=== PATIENT | male | born 1940 | race Hispanic/Latino ===

== ENCOUNTER 2018-07-05 23:23 | Inpatient (IN) | payer MEDICARE ==
[2018-07-05 23:24] VITALS: BMI 30.8
[2018-07-06] MEDS ORDERED: Sodium Chloride 0.9% 1,000 ML IV ONE (00:29)
--- NOTE | 2018-07-06 00:29 | C.PDOC ---
History Of Present Illness Patient presents with blood tinged sputum over the last 2-3 days. No f/c/n/v. Tolerating po. Speaking in complete sentences. No trauma or prolonged sitting. Time Seen by Provider: 07/06/18 00:28 Chief Complaint (Nursing): Cough, Cold, Congestion History Per: Patient History/Exam Limitations: no limitations Onset/Duration Of Symptoms: Days Current Symptoms Are (Timing): Still Present Initiating Event: Upper Respiratory Illness Exacerbating Factor(s): Coughing Current Respiratory Medications: See Home Med List Severity: Moderate Pain Scale Rating Of: 4 Associated Symptoms: Bloody Cough (tinged) Reports Recently: Treated By A Physician Recent travel outside of the [place]: No Additional History Per: Family Past Medical History Reviewed: Historical Data, Nursing Documentation, Vital Signs Vital Signs: Last Vital Signs Temp 97.7 F 07/05/18 23:52 Pulse 42 L 07/05/18 23:52 Resp 16 07/05/18 23:52 BP 130/96 H 07/05/18 23:52 Pulse Ox 97 07/05/18 23:52 - Medical History PMH: HTN - [facility] Procedures VENOUS CATHETERIZATION NEC (11/21/13) Family History: States: No Known Family Hx - Social History Hx Tobacco Use: Yes Hx Alcohol Use: Yes (SOCIAL) Hx Substance Use: No - Immunization History Hx Tetanus Toxoid Vaccination: No Hx Influenza Vaccination: No Review Of Systems Constitutional: Negative for: Fever, Chills Cardiovascular: Negative for: Chest Pain Respiratory: Positive for: Cough, Shortness of Breath Gastrointestinal: Negative for: Nausea, Vomiting, Abdominal Pain Genitourinary: Negative for: Dysuria Musculoskeletal: Negative for: Back Pain Skin: Negative for: Rash Neurological: Negative for: Weakness Psych: Negative for: Anxiety Physical Exam - Physical Exam Appears: Non-toxic, No Acute Distress Skin: Warm, Dry Head: Normacephalic Eye(s): bilateral: Normal Inspection Oral Mucosa: Moist Neck: Supple Chest: Symmetrical Cardiovascular: Rhythm Regular Respiratory: No Rales, Rhonchi, Wheezing (few) Gastrointestinal/Abdominal: Soft, No Tenderness, No Distention Back: No CVA Tenderness Extremity: Normal ROM Extremity: Bilateral: Atraumatic, Normal Color And Temperature Pulses: Left Dorsalis Pedis: Normal, Right Dorsalis Pedis: Normal Neurological/Psych: Oriented x3, Normal Speech Gait: Steady ED Course And Treatment - Laboratory Results Result Diagrams: 07/06/18 01:04 07/06/18 01:04 ECG: Interpreted By Me, Viewed By Me O2 Sat by Pulse Oximetry: 97 Pulse Ox Interpretation: Normal - Radiology CXR: Interpreted by Me, Viewed By Me CXR Interpretation: Yes: Infiltrates (? rll ), Cardiomegaly. No: Fracture, Other Disposition Discussed With Dr.: Martin Frost Jr. Comment: accepted the pt on his service and took over the care at 5:05 AM Doctor Will See Patient In The: Hospital Counseled Patient/Family Regarding: Studies Performed, Diagnosis - Disposition Disposition: HOSPITALIZED Disposition Time: 00:28 Condition: GUARDED Forms: [employer] (Wallisian) - POA Present On Arrival: None - Clinical Impression Clinical Impression: Lung mass, Pulmonary emboli, Bronchitis Decision To Admit - Pt Status Changed To: Hospital Disposition Of: Inpatient - Admit Certification Admit to Inpatient:: After my assessment, the patient will require hospit alization for at least two midnights. This is because of the severity of symptoms shown, intensity of services needed, and/or the medical risk in this patient being treated as an outpatient. - InPatient: Physician Admission Certification: I certify that this patient requires 2 or more midnights of care for the following reason:: After my assessment, the stewart ent will require hospitalization for at least two midnights. This is because of the severity of symptoms shown, intensity of services needed, and/or the medical risk in this patient being treated as an outpatient. - . Bed Request Type: Telemetry Admitting Physician: Martin Frost Jr. Patient Diagnosis: Lung mass, Pulmonary emboli, Bronchitis
[2018-07-06] MEDS: Albuterol-Ipratrop 3 mg / 0.5 (3 ml) UD IH SCH (00:38)
[2018-07-06] MEDS ORDERED: Albuterol-Ipratrop 3 mg / 0.5 (3 ml) UD ONE (00:44)
[2018-07-06 01:17] LABS: VENOUS BLOOD GAS BASE EXCESS 3.4 mmol/L (0.0-2.0); VENOUS BLOOD GAS PCO2 55 mmHg (40-60); VENOUS BLOOD GAS PO2 28 mm/Hg (30-55); VENOUS BLOOD PH 7.35 (7.32-7.43)
[2018-07-06 01:18] LABS: BASO # 0.1 K/uL (0.0-0.2); BASO % 0.8 % (0.0-2.0); EOS # 0.3 K/uL (0.0-0.7); EOS % 3.5 % (0.0-4.0); HEMOGLOBIN 14.2 g/dL (12.0-18.0); LYMPH # 2.9 K/uL (1.0-4.3); LYMPH % 35.8 % (20.0-40.0); MEAN CELL VOLUME 69.7 fL (80.0-94.0); MEAN CORPUSCULAR HEMOGLOBIN 22.5 pg (27.0-31.0); MEAN CORPUSCULAR HGB CONC 32.3 g/dL (33.0-37.0); MEAN PLATELET VOLUME 9.2 fL (7.2-11.7); MONO # 0.8 K/uL (0.0-0.8); MONO % 10.3 % (0.0-10.0); NEUT % 49.6 % (50.0-75.0); RBC 6.32 Mil/uL (4.40-5.90); RED CELL DISTRIBUTION WIDTH 17.3 % (11.5-14.5)
[2018-07-06 01:19] LABS: ALB/GLOB RATIO 1.3 (1.0-2.1); ALBUMIN 3.9 g/dL (3.5-5.0); ALT/SGPT 10 U/L (21-72); AST/SGOT 19 U/L (17-59); BLOOD UREA NITROGEN 17 mg/dL (9-20); CALCIUM 9.1 mg/dl (8.6-10.4); GFR NON-AFRICAN AMERICAN > 60
[2018-07-06 01:22] LABS: INR 1.1
[2018-07-06 02:34] LABS: URINE BILIRUBIN NEGATIVE (NEGATIVE); URINE BLOOD NEGATIVE (NEGATIVE); URINE CLARITY Clear (Clear); URINE COLOR YELLOW (YELLOW); URINE GLUCOSE (UA) Normal (Normal); URINE PROTEIN NEGATIVE (NEGATIVE)
[2018-07-06 02:35] LABS: URINE BACTERIA RARE (<OCC); URINE LEUKOCYTE ESTERASE NEGATIVE Leu/uL (Negative); URINE UROBILINOGEN Normal mg/dL (0.2-1.0)
[2018-07-06] MEDS ORDERED: Iodixanol 320 MG/ML 100 ML BOTTLE IV ONE (02:38)
[2018-07-06] MEDS ORDERED: Piperacillin/Tazobact 3.375 gm 100 ML IVPB STA (05:08)
[2018-07-06] MEDS ORDERED: Piperacillin/Tazobact 3.375 gm 100 ML IVPB ONE (05:19)
--- NOTE | 2018-07-06 09:30 | CT ---
Date of service: 07/06/2018 PROCEDURE: CT Chest with contrast (Pulmonary Angiogram) HISTORY: hemoptysis COMPARISON: None available. TECHNIQUE: Axial computed tomography images were obtained of the chest in the pulmonary arterial phase of enhancement. Coronal and sagittal reformatted images were created and reviewed. Intravenous contrast dose: 100 mL Visipaque 320 escape Radiation dose: Total exam DLP = 619.04 mGy-cm. This CT exam was performed using one or more of the following dose reduction techniques: Automated exposure control, adjustment of the mA and/or kV according to patient size, and/or use of iterative reconstruction technique. FINDINGS: PULMONARY ARTERIES: Multiple left lower lobe segmental branch pulmonary emboli. An approximately 6 5.5 by 4.9 by 5 point 5 cm left infra hilar/left subcarinal/left hilar mass suspicious for malignancy encasing/infiltrating exerting mass effect on the left made similar left lower lobe bronchus with the encasement of the left main pulmonary artery and its immediate proximal branches is suggested.. Left lower lobe secondary volume loss and atelectasis inferred. AORTA: . No thoracic aortic aneurysm. There is presence of aortic atherosclerotic calcification and mural plaque on cross sectional studies. An aberrant right subclavian artery noted. Coronary artery calcifications noted LUNGS: Left central spiculated mass suspicious for malignancy as referenced above in the pulmonary consolidation. No no peripheral pulmonary suspect nodular metastases appreciated. PLEURAL SPACES: Unremarkable. No effusion or pneumothorax. HEART: Probable mild cardiomegaly left ventricular hypertrophy suspect. No significant pericardial effusion. LYMPH NODES: Mediastinal and blending left hilar gamal densities suspicious for metastatic lymphadenopathy. BONES, CHEST WALL: Unremarkable. No fracture or destructive lesion OTHER FINDINGS: Prominence of the thoracic and abdominal esophagus-a minimal hiatal hernia suspect. Concomitant esophageal neoplastic changes not excluded. The gastric antral duodenal junction appears less distended here mural thickening versus peristalsis is consideration. Its etiology is unclear. Distal to this in the 2nd duodenal segment there is a dilated duodenum with air-fluid level present. . Exophytic 4.5 x 3.2 cm right renal cyst. IMPRESSION: Left hilar/infrahilar/subcarinal "mass" suspicious for malignancy. Secondary compromise left lower lobe bronchus and left main pulmonary/proximal pulmonary artery branch encasement suspect. Subsegmental atelectasis left lower lobe medial aspect. Suspect regional central and left mediastinal/blending left hilar lymphadenopathy. Aberrant right subclavian artery developmental variant noted. Pulmonary emboli left lower lobe and subsegmental arterial branches.. Other findings as above. Concordant results (preliminary interpretation) provided by [facility].
--- NOTE | 2018-07-06 11:09 | CP.PCM.HP ---
History of Present Illness - History of Present Illness History of Present Illness: H&P note for Dr Frost CC: "I coughed up blood" HPI: Patient is a 77 y/o male with a PMhx of HTN and HLD presented to the ED with a 2 day history of cough and one episode of hemoptysis last night at 11 pm. Patient states that the cough was bright red blood colored and this is the first time he is having these symptoms. He also complains of pleuritic chest pain on the lateral lower left side of his chest that is exacerbated by coughing. Patient denies any fever, chills, palpitations, SOB, sore thorat, abdominal pain, nausea, vomiting, diarrhea, constipation, hematochezia, dysuria, hematuria, leg edema, numbness or tingling. He also denies any weight changes, recent travel, or any sick contact. Code status: full code, does not have living will/AD, proxy Ronak restrepo Pmhx: HTN, HLD PShx: denies. FamHx: Brother had CABG at age 50s after having an CA. Med: Aspirin 81 mg, Vit B, Vit D, Vit C complex Allergies: Novacaine (hypotension related palpitations) SocHx: Smoked 1ppd for about 60 years, quit 4 months ago, drinks alcohol socially on holidays, denies any drug use. Lives with his son and daughter in [place]. 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 PMD: Dr. Benito Germain MD. Present on Admission - Present on Admission Any Indicators Present on Admission: No Review of Systems - Review of Systems All systems: reviewed and no additional remarkable complaints except Review of Systems: as stated in HPI Past Patient History - Past Social History Smoking Status: Heavy Smoker > 10 Cigarettes Daily - CARDIAC Hx Hypertension: Yes - MUSCULOSKELETAL/RHEUMATOLOGICAL Hx Falls: No - PSYCHIATRIC Hx Substance Use: No - SURGICAL HISTORY Hx Cardiac Catheterization: Yes (2004) - ANESTHESIA Hx Anesthesia: Yes Hx Anesthesia Reactions: No Hx Malignant Hyperthermia: No Meds Allergies/Adverse Reactions: Allergies Allergy/AdvReac Type Severity Reaction Status Date / Time novocaine Allergy Uncoded 11/21/13 10:08 Physical Exam - Constitutional Appears: Non-toxic, No Acute Distress - Head Exam Head Exam: ATRAUMATIC, NORMAL INSPECTION, NORMOCEPHALIC - Eye Exam Eye Exam: EOMI, Normal appearance - ENT Exam ENT Exam: Mucous Membranes Moist, Normal Exam - Neck Exam Neck exam: Positive for: Normal Inspection - Respiratory Exam Respiratory Exam: Clear to Auscultation Bilateral, NORMAL BREATHING PATTERN. absent: Rales, Rhonchi, Wheezes - Cardiovascular Exam Cardiovascular Exam: REGULAR RHYTHM, +S1, +S2 - GI/Abdominal Exam GI & Abdominal Exam: Normal Bowel Sounds, Soft - Extremities Exam Extremities exam: Positive for: full ROM, normal inspection - Back Exam Back exam: NORMAL INSPECTION - Neurological Exam Neurological exam: Alert, CN II-XII Intact, Oriented x3 - Psychiatric Exam Psychiatric exam: Normal Affect, Normal Mood - Skin Skin Exam: Dry, Intact, Normal Color, Warm Results - Vital Signs Recent Vital Signs: Last Vital Signs Temp 97.5 F L 07/06/18 08:49 Pulse 67 07/06/18 08:54 Resp 20 07/06/18 08:49 BP 137/66 07/06/18 08:49 Pulse Ox 95 07/06/18 08:49 - Labs Result Diagrams: 07/06/18 01:04 07/06/18 01:04 Labs: Laboratory Results - last 24 hr 07/06/18 07/06/18 07/06/18 00:46 01:04 01:04 WBC 8.0 RBC 6.32 H Hgb 14.2 Hct 44.0 MCV 69.7 L MCH 22.5 L MCHC 32.3 L RDW 17.3 H Plt Count 226 MPV 9.2 Neut % (Auto) 49.6 L Lymph % (Auto) 35.8 [place] % (Auto) 10.3 H Eos % (Auto) 3.5 Baso % (Auto) 0.8 Neut # (Auto) 4.0 Lymph # (Auto) 2.9 [place] # (Auto) 0.8 Eos # (Auto) 0.3 Baso # (Auto) 0.1 PT 12.0 INR 1.1 APTT 33 pO2 28 L VBG pH 7.35 VBG pCO2 55 VBG HCO3 26.3 VBG Total CO2 32.1 H VBG O2 Sat (Calc) 55.8 VBG Base Excess 3.4 H VBG Potassium 4.2 Sodium 136.0 Chloride 100.0 Glucose 84 Lactate 1.9 Potassium Carbon Dioxide Anion Gap BUN Creatinine Est GFR ( Amer) Est GFR (Non-Af Amer) Random Glucose Calcium Total Bilirubin AST ALT Alkaline Phosphatase Total Protein Albumin Globulin Albumin/Globulin Ratio Venous Blood Potassium 4.2 Urine Color Urine Clarity Urine pH Ur Specific [place] Urine Protein Urine Glucose (UA) Urine Ketones Urine Blood Urine Nitrate Urine Bilirubin Urine Urobilinogen Ur Leukocyte Esterase Urine WBC (Auto) Urine RBC (Auto) Urine Bacteria 07/06/18 07/06/18 01:04 02:15 WBC RBC Hgb Hct MCV MCH MCHC RDW Plt Count MPV Neut % (Auto) Lymph % (Auto) [place] % (Auto) Eos % (Auto) Baso % (Auto) Neut # (Auto) Lymph # (Auto) [place] # (Auto) Eos # (Auto) Baso # (Auto) PT INR APTT pO2 VBG pH VBG pCO2 VBG HCO3 VBG Total CO2 VBG O2 Sat (Calc) VBG Base Excess VBG Potassium Sodium 132 Chloride 97 L Glucose Lactate Potassium 4.4 Carbon Dioxide 29 Anion Gap 10 BUN 17 Creatinine 0.9 Est GFR ( Amer) > 60 Est GFR (Non-Af Amer) > 60 Random Glucose 94 D Calcium 9.1 Total Bilirubin 0.5 AST 19 ALT 10 L D Alkaline Phosphatase 70 Total Protein 6.8 Albumin 3.9 Globulin 3.0 Albumin/Globulin Ratio 1.3 Venous Blood Potassium Urine Color Yellow Urine Clarity Clear Urine pH 5.0 Ur Specific [place] 1.010 Urine Protein Negative Urine Glucose (UA) Normal Urine Ketones Negative Urine Blood Negative Urine Nitrate Negative Urine Bilirubin Negative Urine Urobilinogen Normal Ur Leukocyte Esterase Negative Urine WBC (Auto) < 1 Urine RBC (Auto) 1 Urine Bacteria Rare Assessment & Plan - Assessment and Plan (Free Text) Assessment: 77 year old male presenting with hemoptysis, CTA PE protocol shows PE and lung mass suspicious for malignancy. Irregular heart beat on telemetry, patient transfer to ICU, pulm and cardio on board. Plan: Left Pulmonary Embolism Left pulm mass Chest Xray - cardiomegaly, possible infiltrate, pending official read CT angio PE protocol - Multiple left lower lobe segmental branch pulm emboli. approx 5.5 x 4.9x 5.5 cm left inra hilar/left subcarinal/left hilar mass suspicious for malignancy encasing/infiltrate exerting mass effect on left, with encasement of the left main pulm artery. sussegmental atelectasis left lower lobe medial aspect. suspect regonal central and left mediastinal/left hilar lymphadenopathy. Critical care consult - Transfer to ICU for further management of PE/hemptosys Pulm consult- Dr Lopez - possible bronch - will follow up recs New onset irregular heart rate Cardio consult - Dr Anne Hx of HTN normotensive continue monitor vitals Hx of HLD Patient not taking medication f/u lipid panel ppx DVT - meds c/i due to active bleed (hemoptysis), SCDs GI - not indicated HHD Plan discussed with Dr Santosh Kaminski, PGY-1 - Date & Time Date: 07/06/18 Time: 08:00
--- NOTE | 2018-07-06 12:18 | RAD ---
Date of service: 07/06/2018 PROCEDURE: CHEST RADIOGRAPH, 1 VIEW HISTORY: SOB COMPARISON: 11/03/2017 FINDINGS: LUNGS: Interval patchy opacity left lung base patchy atelectasis with or without infiltrate here suggested. PLEURA: No pneumothorax. Interval small left pleural effusion. CARDIOVASCULAR: There is presence of aortic atherosclerotic calcification on x-ray. Possible interval mild cardiomegaly versus projectional accentuation. Pulmonary vasculature top-normal. OSSEOUS STRUCTURES: Thoracic spondylosis. Right shoulder arthrosis. VISUALIZED UPPER ABDOMEN: Normal. OTHER FINDINGS: None. IMPRESSION: Interval basal atelectasis and or infiltrate. Interval small left pleural effusion.
[2018-07-06] MEDS ORDERED: Ipratropium 0.02% Inhal Soln (0.5 mg/2.5 ml) UD IH PRN (13:48)
[2018-07-06 14:42] LABS: ARTERIAL BLOOD GAS HCO3 26.7 mmol/L (21-28); ARTERIAL BLOOD GAS HEMOGLOBIN 13.2 g/dL (11.7-17.4); ARTERIAL BLOOD GAS PCO2 39 mm/Hg (35-45); ARTERIAL BLOOD GAS PH 7.44 (7.35-7.45); ARTERIAL BLOOD GAS PO2 71 mm/Hg (80-100); ARTERIAL BLOOD GAS TCO2 27.7 mmol/L (22-28)
--- NOTE | 2018-07-06 15:12 | CP.PCM.CON ---
History of Present Illness - History of Present Illness History of Present Illness: Pulmonary Consult Note for Dr. Lopez's service CC: blood with cough HPI: 77 yo male w/ PMH of HTN and HLD presented to the ED with a 2 day history of cough and one episode of hemoptysis last night at 11 pm. He states this is the first time that his has experienced this. Reports pain on left side that is worseneed by coughing. Does not report any sob, diaphoresis, fevers, or chills. Of note patient's also of lung cancer. Pmhx: HTN, HLD PShx: denies. FamHx: Brother had CABG at age 50s after having an HI. Med: Aspirin 81 mg, Vit B, Vit D, Vit C complex Allergies: Novacaine (hypotension related palpitations) SocHx: Smoked 1ppd for about 60 years, quit 4 months ago, drinks alcohol socially on holidays, denies any drug use. Lives with his son and daughter in [place]. 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 Review of Systems - Review of Systems All systems: reviewed and no additional remarkable complaints except Review of Systems: see HPI Past Patient History - Past Social History Smoking Status: Heavy Smoker > 10 Cigarettes Daily - CARDIAC Hx Hypertension: Yes - MUSCULOSKELETAL/RHEUMATOLOGICAL Hx Falls: No - PSYCHIATRIC Hx Substance Use: No - SURGICAL HISTORY Hx Cardiac Catheterization: Yes (2004) - ANESTHESIA Hx Anesthesia: Yes Hx Anesthesia Reactions: No Hx Malignant Hyperthermia: No Meds Allergies/Adverse Reactions: Allergies Allergy/AdvReac Type Severity Reaction Status Date / Time novocaine Allergy Uncoded 11/21/13 10:08 - Medications Medications: Current Medications Heparin Sodium (Porcine) (Heparin) 5,000 units SC Q12 HCRIS Ceftriaxone Sodium 1 gm/ (Sodium Chloride) 100 mls @ 100 mls/hr IVPB DAILY CHRIS; Protocol Ipratropium [place] (Atrovent) 0.5 mg IH RQ6 PRN PRN Reason: Shortness of Breath Pantoprazole Sodium (Protonix Inj) 40 mg IVP DAILY CHRIS Physical Exam - Constitutional Appears: Non-toxic, No Acute Distress - Head Exam Head Exam: NORMAL INSPECTION - Eye Exam Eye Exam: EOMI, Normal appearance - ENT Exam ENT Exam: Mucous Membranes Moist - Respiratory Exam Respiratory Exam: Clear to Auscultation Bilateral, NORMAL BREATHING PATTERN - Cardiovascular Exam Cardiovascular Exam: REGULAR RHYTHM, +S1, +S2 - GI/Abdominal Exam GI & Abdominal Exam: Normal Bowel Sounds, Soft. absent: Tenderness - Extremities Exam Extremities exam: Positive for: normal inspection. Negative for: calf tenderness, pedal edema - Neurological Exam Neurological exam: Alert, Oriented x3 - Psychiatric Exam Psychiatric exam: Normal Affect, Normal Mood - Skin Skin Exam: Dry, Intact, Normal Color Results - Vital Signs Recent Vital Signs: Last Vital Signs Temp 98.7 F 07/06/18 13:27 Pulse 60 07/06/18 13:20 Resp 16 07/06/18 13:20 BP 123/72 07/06/18 13:20 Pulse Ox 96 07/06/18 13:20 - Labs Result Diagrams: 07/06/18 01:04 07/06/18 01:04 Labs: Laboratory Results - last 24 hr 07/06/18 07/06/18 07/06/18 00:46 01:04 01:04 WBC 8.0 RBC 6.32 H Hgb 14.2 Hct 44.0 MCV 69.7 L MCH 22.5 L MCHC 32.3 L RDW 17.3 H Plt Count 226 MPV 9.2 Neut % (Auto) 49.6 L Lymph % (Auto) 35.8 [place] % (Auto) 10.3 H Eos % (Auto) 3.5 Baso % (Auto) 0.8 Neut # (Auto) 4.0 Lymph # (Auto) 2.9 [place] # (Auto) 0.8 Eos # (Auto) 0.3 Baso # (Auto) 0.1 PT 12.0 INR 1.1 APTT 33 Puncture Site pCO2 pO2 28 L HCO3 ABG pH ABG Total CO2 ABG O2 Saturation ABG Base Excess ABG Hemoglobin ABG Carboxyhemoglobin POC ABG HHb (Measured) ABG Methemoglobin Sean Test VBG pH 7.35 VBG pCO2 55 VBG HCO3 26.3 VBG Total CO2 32.1 H VBG O2 Sat (Calc) 55.8 VBG Base Excess 3.4 H VBG Potassium 4.2 Hgb O2 Saturation Sodium 136.0 Chloride 100.0 Glucose 84 Lactate 1.9 Liter Flow Potassium Carbon Dioxide Anion Gap BUN Creatinine Est GFR ( Amer) Est GFR (Non-Af Amer) Random Glucose Calcium Phosphorus Magnesium Total Bilirubin AST ALT Alkaline Phosphatase Total Protein Albumin Globulin Albumin/Globulin Ratio Venous Blood Potassium 4.2 Urine Color Urine Clarity Urine pH Ur Specific [place] Urine Protein Urine Glucose (UA) Urine Ketones Urine Blood Urine Nitrate Urine Bilirubin Urine Urobilinogen Ur Leukocyte Esterase Urine WBC (Auto) Urine RBC (Auto) Urine Bacteria 07/06/18 07/06/18 07/06/18 01:04 02:15 14:39 WBC RBC Hgb Hct MCV MCH MCHC RDW Plt Count MPV Neut % (Auto) Lymph % (Auto) [place] % (Auto) Eos % (Auto) Baso % (Auto) Neut # (Auto) Lymph # (Auto) [place] # (Auto) Eos # (Auto) Baso # (Auto) PT INR APTT Puncture Site Lb pCO2 39 pO2 71 L HCO3 26.7 ABG pH 7.44 ABG Total CO2 27.7 ABG O2 Saturation 98.0 ABG Base Excess 2.3 ABG Hemoglobin 13.2 ABG Carboxyhemoglobin 2.3 H POC ABG HHb (Measured) 1.9 ABG Methemoglobin 1.1 Sean Test Na VBG pH VBG pCO2 VBG HCO3 VBG Total CO2 VBG O2 Sat (Calc) VBG Base Excess VBG Potassium Hgb O2 Saturation 94.7 L Sodium 132 Chloride 97 L Glucose Lactate Liter Flow 21.0 Potassium 4.4 Carbon Dioxide 29 Anion Gap 10 BUN 17 Creatinine 0.9 Est GFR ( Amer) > 60 Est GFR (Non-Af Amer) > 60 Random Glucose 94 D Calcium 9.1 Phosphorus 3.8 Magnesium 1.9 Total Bilirubin 0.5 AST 19 ALT 10 L D Alkaline Phosphatase 70 Total Protein 6.8 Albumin 3.9 Globulin 3.0 Albumin/Globulin Ratio 1.3 Venous Blood Potassium Urine Color Yellow Urine Clarity Clear Urine pH 5.0 Ur Specific [place] 1.010 Urine Protein Negative Urine Glucose (UA) Normal Urine Ketones Negative Urine Blood Negative Urine Nitrate Negative Urine Bilirubin Negative Urine Urobilinogen Normal Ur Leukocyte Esterase Negative Urine WBC (Auto) < 1 Urine RBC (Auto) 1 Urine Bacteria Rare Assessment & Plan - Assessment and Plan (Free Text) Assessment: 77 yo male w/ PMH of HTN and HLD admitted for hemoptysis. Pulm consulted for hemoptysis. Plan: A: Hemoptysis Lung Mass Pulmonary embolism P: Chest CT findings concerning for hilar mass and pulmonary embolism Transferred to ICU for aggressive monitoring in the setting of hemoptysis and PE IV ceftriaxone Atrovent 0.5mg q6h for sob Hemodynamically stable Heparin q12 5000 units Bronchoscopy for tissue diagnosis Daily CBCs/CMP
--- NOTE | 2018-07-06 15:27 | CP.PCM.CON ---
<Deon Jama - Last Filed: 07/06/18 17:40> History of Present Illness - History of Present Illness History of Present Illness: PGY-1 Critical Care Progress Note for Dr. Lopez Patient seen and evaluated for ICU transfer for new-onset cough and hemoptysis. Patient states having cough beginning two days ago, and yesterday noticed small amount blood in the sputum. Does report weight loss, but due to recent diet changes cutting out sweets. Patient not c/o any fevers or chills, no history of TB or TB exposure. Patient reports 50+ pack year smoking history, but quick several years ago. Otherwise patient denies chest pain, pleuritic pain, shortness of breath, wheezing, dizziness. Pmhx: HTN, HLD PShx: Denies FamHx: Brother had CABG at age 50s following [place] Med: Aspirin 81 mg, Vit B, Vit D, Vit C complex Allergies: Novacaine SocHx: Smoked 1ppd for about 60 years, quit 4 months ago, drinks alcohol socially on holidays, denies any drug use. Lives with his son and daughter in [place]. 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 Code status: full code, does not have living will/AD, proxy Ronak restrepo Review of Systems - Constitutional Constitutional: absent: Chills, Fever - EENT Eyes: absent: Blurred Vision, Diplopia Nose/Mouth/Throat: absent: Nasal Congestion, Nasal Discharge - Cardiovascular Cardiovascular: absent: Chest Pain, Dyspnea - Respiratory Respiratory: Cough, Hemoptysis, Change in Mucous Color (specs blood noted in mucous). absent: Dyspnea, Wheezing - Gastrointestinal Gastrointestinal: absent: Abdominal Pain, Nausea, Vomiting - Genitourinary Genitourinary: absent: Dysuria, Flank Pain - Musculoskeletal Musculoskeletal: absent: Back Pain, Neck Pain - Neurological Neurological: absent: Dizziness, Numbness, Focal Weakness - Psychiatric Psychiatric: absent: Anxiety, Depression - Hematologic/Lymphatic Hematologic: absent: Easy Bleeding, Easy Bruising Past Patient History - Past Social History Smoking Status: Heavy Smoker > 10 Cigarettes Daily - CARDIAC Hx Hypertension: Yes - MUSCULOSKELETAL/RHEUMATOLOGICAL Hx Falls: No - PSYCHIATRIC Hx Substance Use: No - SURGICAL HISTORY Hx Cardiac Catheterization: Yes (2004) - ANESTHESIA Hx Anesthesia: Yes Hx Anesthesia Reactions: No Hx Malignant Hyperthermia: No Meds Allergies/Adverse Reactions: Allergies Allergy/AdvReac Type Severity Reaction Status Date / Time novocaine Allergy Uncoded 11/21/13 10:08 - Medications Medications: Current Medications Heparin Sodium (Porcine) (Heparin) 5,000 units SC Q12 [facility] Ceftriaxone Sodium 1 gm/ (Sodium Chloride) 100 mls @ 100 mls/hr IVPB DAILY [facility]; Protocol Ipratropium [place] (Atrovent) 0.5 mg IH RQ6 PRN PRN Reason: Shortness of Breath Pantoprazole Sodium (Protonix Inj) 40 mg IVP DAILY [facility] Physical Exam - Constitutional Appears: Non-toxic, No Acute Distress - Head Exam Head Exam: ATRAUMATIC, NORMOCEPHALIC - Eye Exam Eye Exam: EOMI - ENT Exam ENT Exam: Mucous Membranes Moist - Respiratory Exam Respiratory Exam: Decreased Breath Sounds. absent: Rales, Rhonchi - Cardiovascular Exam Cardiovascular Exam: REGULAR RHYTHM, +S1, +S2 - GI/Abdominal Exam GI & Abdominal Exam: Normal Bowel Sounds, Soft. absent: Tenderness - Extremities Exam Extremities exam: Negative for: pedal edema, tenderness - Neurological Exam Neurological exam: Alert, CN II-XII Intact, Oriented x3 - Psychiatric Exam Psychiatric exam: Normal Affect, Normal Mood - Skin Skin Exam: Dry, Intact Results - Vital Signs Recent Vital Signs: Last Vital Signs Temp 98.7 F 07/06/18 13:27 Pulse 60 07/06/18 13:20 Resp 16 07/06/18 13:20 BP 123/72 07/06/18 13:20 Pulse Ox 96 07/06/18 13:20 - Labs Result Diagrams: 07/06/18 01:04 07/06/18 01:04 Labs: Laboratory Results - last 24 hr 07/06/18 07/06/18 07/06/18 00:46 01:04 01:04 WBC 8.0 RBC 6.32 H Hgb 14.2 Hct 44.0 MCV 69.7 L MCH 22.5 L MCHC 32.3 L RDW 17.3 H Plt Count 226 MPV 9.2 Neut % (Auto) 49.6 L Lymph % (Auto) 35.8 [place] % (Auto) 10.3 H Eos % (Auto) 3.5 Baso % (Auto) 0.8 Neut # (Auto) 4.0 Lymph # (Auto) 2.9 [place] # (Auto) 0.8 Eos # (Auto) 0.3 Baso # (Auto) 0.1 PT 12.0 INR 1.1 APTT 33 Puncture Site pCO2 pO2 28 L HCO3 ABG pH ABG Total CO2 ABG O2 Saturation ABG Base Excess ABG Hemoglobin ABG Carboxyhemoglobin POC ABG HHb (Measured) ABG Methemoglobin Sean Test VBG pH 7.35 VBG pCO2 55 VBG HCO3 26.3 VBG Total CO2 32.1 H VBG O2 Sat (Calc) 55.8 VBG Base Excess 3.4 H VBG Potassium 4.2 Hgb O2 Saturation Sodium 136.0 Chloride 100.0 Glucose 84 Lactate 1.9 Liter Flow Potassium Carbon Dioxide Anion Gap BUN Creatinine Est GFR ( Amer) Est GFR (Non-Af Amer) Random Glucose Calcium Phosphorus Magnesium Total Bilirubin AST ALT Alkaline Phosphatase Total Protein Albumin Globulin Albumin/Globulin Ratio Venous Blood Potassium 4.2 Urine Color Urine Clarity Urine pH Ur Specific [place] Urine Protein Urine Glucose (UA) Urine Ketones Urine Blood Urine Nitrate Urine Bilirubin Urine Urobilinogen Ur Leukocyte Esterase Urine WBC (Auto) Urine RBC (Auto) Urine Bacteria 07/06/18 07/06/18 07/06/18 01:04 02:15 14:39 WBC RBC Hgb Hct MCV MCH MCHC RDW Plt Count MPV Neut % (Auto) Lymph % (Auto) [place] % (Auto) Eos % (Auto) Baso % (Auto) Neut # (Auto) Lymph # (Auto) [place] # (Auto) Eos # (Auto) Baso # (Auto) PT INR APTT Puncture Site Lb pCO2 39 pO2 71 L HCO3 26.7 ABG pH 7.44 ABG Total CO2 27.7 ABG O2 Saturation 98.0 ABG Base Excess 2.3 ABG Hemoglobin 13.2 ABG Carboxyhemoglobin 2.3 H POC ABG HHb (Measured) 1.9 ABG Methemoglobin 1.1 Sean Test Na VBG pH VBG pCO2 VBG HCO3 VBG Total CO2 VBG O2 Sat (Calc) VBG Base Excess VBG Potassium Hgb O2 Saturation 94.7 L Sodium 132 Chloride 97 L Glucose Lactate Liter Flow 21.0 Potassium 4.4 Carbon Dioxide 29 Anion Gap 10 BUN 17 Creatinine 0.9 Est GFR ( Amer) > 60 Est GFR (Non-Af Amer) > 60 Random Glucose 94 D Calcium 9.1 Phosphorus 3.8 Magnesium 1.9 Total Bilirubin 0.5 AST 19 ALT 10 L D Alkaline Phosphatase 70 Total Protein 6.8 Albumin 3.9 Globulin 3.0 Albumin/Globulin Ratio 1.3 Venous Blood Potassium Urine Color Yellow Urine Clarity Clear Urine pH 5.0 Ur Specific [place] 1.010 Urine Protein Negative Urine Glucose (UA) Normal Urine Ketones Negative Urine Blood Negative Urine Nitrate Negative Urine Bilirubin Negative Urine Urobilinogen Normal Ur Leukocyte Esterase Negative Urine WBC (Auto) < 1 Urine RBC (Auto) 1 Urine Bacteria Rare Assessment & Plan - Assessment and Plan (Free Text) Assessment: 77 year old male with CC hemoptysis, found to have lung mass on CT. Plan Pulm Left-sided pulmonary mass, left-sided pulmonary embolism Imaging -Chest Xray - cardiomegaly, possible infiltrate, pending official read -CT angio PE protocol - Multiple left lower lobe segmental branch pulm emboli. approx 5.5 x 4.9x 5.5 cm left inra hilar/left subcarinal/left hilar mass suspicious for malignancy encasing/infiltrate exerting mass effect on left, with encasement of the left main pulm artery. sussegmental atelectasis left lower lobe medial aspect. suspect regonal central and left mediastinal/left hilar lymphadenopathy. Critical care consult - Transfer to ICU for further management of PE/hemptosys Pulm consult- Dr Lopez - possible bronch - will follow up recs -ICU monitoring, patient breathing ORA in NAD -Hold on anticoagulation 2/2 hemoptysis -Plan for bronchoscopy with lung mass bx tomorrow 07/07 Cardio HTN -History HTN not currently on meds -Monitor BP Endo -f/u lipid panel PPx DVT - AC c/i 2/2 hemoptysis GI ppx not indiciated at this time Assessment and plan d/w Dr. John Jama, PGY-1 <Frandy Lopez - Last Filed: 07/06/18 17:59> Meds - Medications Medications: Current Medications Heparin Sodium (Porcine) (Heparin) 5,000 units SC Q12 [facility] Ceftriaxone Sodium 1 gm/ (Sodium Chloride) 100 mls @ 100 mls/hr IVPB DAILY [facility]; Protocol Ipratropium [place] (Atrovent) 0.5 mg IH RQ6 PRN PRN Reason: Shortness of Breath Pantoprazole Sodium (Protonix Inj) 40 mg IVP DAILY [facility] Results - Vital Signs Recent Vital Signs: Last Vital Signs Temp 98.7 F 07/06/18 13:27 Pulse 55 L 07/06/18 17:20 Resp 14 07/06/18 17:20 BP 121/73 07/06/18 17:20 Pulse Ox 96 07/06/18 17:20 - Labs Result Diagrams: 07/06/18 01:04 07/06/18 01:04 Labs: Laboratory Results - last 24 hr 07/06/18 07/06/18 07/06/18 00:46 01:04 01:04 WBC 8.0 RBC 6.32 H Hgb 14.2 Hct 44.0 MCV 69.7 L MCH 22.5 L MCHC 32.3 L RDW 17.3 H Plt Count 226 MPV 9.2 Neut % (Auto) 49.6 L Lymph % (Auto) 35.8 [place] % (Auto) 10.3 H Eos % (Auto) 3.5 Baso % (Auto) 0.8 Neut # (Auto) 4.0 Lymph # (Auto) 2.9 [place] # (Auto) 0.8 Eos # (Auto) 0.3 Baso # (Auto) 0.1 PT 12.0 INR 1.1 APTT 33 Puncture Site pCO2 pO2 28 L HCO3 ABG pH ABG Total CO2 ABG O2 Saturation ABG Base Excess ABG Hemoglobin ABG Carboxyhemoglobin POC ABG HHb (Measured) ABG Methemoglobin Sean Test VBG pH 7.35 VBG pCO2 55 VBG HCO3 26.3 VBG Total CO2 32.1 H VBG O2 Sat (Calc) 55.8 VBG Base Excess 3.4 H VBG Potassium 4.2 Hgb O2 Saturation Sodium 136.0 Chloride 100.0 Glucose 84 Lactate 1.9 Liter Flow Potassium Carbon Dioxide Anion Gap BUN Creatinine Est GFR ( Amer) Est GFR (Non-Af Amer) Random Glucose Calcium Phosphorus Magnesium Total Bilirubin AST ALT Alkaline Phosphatase Total Protein Albumin Globulin Albumin/Globulin Ratio Venous Blood Potassium 4.2 Urine Color Urine Clarity Urine pH Ur Specific [place] Urine Protein Urine Glucose (UA) Urine Ketones Urine Blood Urine Nitrate Urine Bilirubin Urine Urobilinogen Ur Leukocyte Esterase Urine WBC (Auto) Urine RBC (Auto) Urine Bacteria 07/06/18 07/06/18 07/06/18 01:04 02:15 14:39 WBC RBC Hgb Hct MCV MCH MCHC RDW Plt Count MPV Neut % (Auto) Lymph % (Auto) [place] % (Auto) Eos % (Auto) Baso % (Auto) Neut # (Auto) Lymph # (Auto) [place] # (Auto) Eos # (Auto) Baso # (Auto) PT INR APTT Puncture Site Lb pCO2 39 pO2 71 L HCO3 26.7 ABG pH 7.44 ABG Total CO2 27.7 ABG O2 Saturation 98.0 ABG Base Excess 2.3 ABG Hemoglobin 13.2 ABG Carboxyhemoglobin 2.3 H POC ABG HHb (Measured) 1.9 ABG Methemoglobin 1.1 Sean Test Na VBG pH VBG pCO2 VBG HCO3 VBG Total CO2 VBG O2 Sat (Calc) VBG Base Excess VBG Potassium Hgb O2 Saturation 94.7 L Sodium 132 Chloride 97 L Glucose Lactate Liter Flow 21.0 Potassium 4.4 Carbon Dioxide 29 Anion Gap 10 BUN 17 Creatinine 0.9 Est GFR ( Amer) > 60 Est GFR (Non-Af Amer) > 60 Random Glucose 94 D Calcium 9.1 Phosphorus 3.8 Magnesium 1.9 Total Bilirubin 0.5 AST 19 ALT 10 L D Alkaline Phosphatase 70 Total Protein 6.8 Albumin 3.9 Globulin 3.0 Albumin/Globulin Ratio 1.3 Venous Blood Potassium Urine Color Yellow Urine Clarity Clear Urine pH 5.0 Ur Specific [place] 1.010 Urine Protein Negative Urine Glucose (UA) Normal Urine Ketones Negative Urine Blood Negative Urine Nitrate Negative Urine Bilirubin Negative Urine Urobilinogen Normal Ur Leukocyte Esterase Negative Urine WBC (Auto) < 1 Urine RBC (Auto) 1 Urine Bacteria Rare Attending/Attestation - Attestation I have personally seen and examined this patient.: Yes I have fully participated in the care of the patient.: Yes I have reviewed all pertinent clinical information: Yes Notes (Text): 07/06/18 17:57 Patient seen and examined 77-year-old male transferred to intensive care unit for hemoptysis, lung mass, pulmonary embolism and tachycardia In the ICU patient found to be tachycardic Possible bronchoscopy/EBUS No full anticoagulation because of hemoptysis No DVT on venous Doppler of lower extremities Echocardiogram done with normal ejection fraction Quantitate hemoptysis Nebulizer treatment
--- NOTE | 2018-07-06 23:20 | CARD ---
APPROVED REPORT Date of service: 07/06/2018 EXAM: Two-dimensional and M-mode echocardiogram with Doppler and color Doppler. INDICATION Pulmonary Embolism IRREGULAR RHYTHM 2D DIMENSIONS IVSd1.0 (0.7-1.1cm)LVDd4.6 (3.9-5.9cm) PWd0.7 (0.7-1.1cm)LA Iozive08 (18-58mL) LVDs3.5 (2.5-4.0cm)FS (%) 24.5 % LVEF (%)51.0 (>50%)CO6.0 L/min LVEF (Carlos's)53 % M-Mode DIMENSIONS RVDd1.62 (2.1-3.2cm)Left Atrium (MM)3.60 (2.5-4.0cm) IVSd1.03 (0.7-1.1cm)Aortic Root3.42 (2.2-3.7cm) LVDd4.90 (4.0-5.6cm)Aortic Cusp Exc.2.09 (1.5-2.0cm) PWd1.03 (0.7-1.1cm)FS (%) 19 % LVDs3.97 (2.0-3.8cm)TAPSE15.93 cm LVEF (%)50 (>50%) Mitral Valve MV E Qjaedllq92.5cm/sMV A Vqbdkofr68.0cm/sE/A ratio1.3 TDI Lateral E' Peak V8.42cm/sMedial E' Peak V5.90cm/sE/Lateral E'7.2 E/Medial E'10.3 Tricuspid Valve TR Peak [id number]/sTR Peak [id number] LEFT VENTRICLE The left ventricle is normal size. There is normal left ventricular wall thickness. The left ventricular function is normal. The left ventricular ejection fraction is within the normal range. There is normal LV segmental wall motion. The left ventricular diastolic function is normal. RIGHT VENTRICLE The right ventricle is normal size. There is normal right ventricular wall thickness. ATRIA The left atrium size is normal. The right atrium size is normal. AORTIC VALVE The aortic valve is normal in structure. MITRAL VALVE Mitral regurgitation is trace. TRICUSPID VALVE There is mild tricuspid regurgitation. <Conclusion> Normal LV systolic function. Normal chamber size. Trace MR. Mild TR.
--- NOTE | 2018-07-07 05:41 | CP.PCM.CON ---
History of Present Illness - History of Present Illness History of Present Illness: 77 Male with Lung Mass consulted for Cardiac arrhythmias Denies chest pain and palpitations R/O ACS Check TSH Check ECHO Will follow Past Patient History - Past Social History Smoking Status: Heavy Smoker > 10 Cigarettes Daily - CARDIAC Hx Hypertension: Yes - MUSCULOSKELETAL/RHEUMATOLOGICAL Hx Falls: No - PSYCHIATRIC Hx Substance Use: No - SURGICAL HISTORY Hx Cardiac Catheterization: Yes (2004) - ANESTHESIA Hx Anesthesia: Yes Hx Anesthesia Reactions: No Hx Malignant Hyperthermia: No Meds Allergies/Adverse Reactions: Allergies Allergy/AdvReac Type Severity Reaction Status Date / Time novocaine Allergy Uncoded 11/21/13 10:08 - Medications Medications: Current Medications Heparin Sodium (Porcine) (Heparin) 5,000 units SC Q12 [facility] Last Admin: 07/06/18 22:00 Dose: Not Given Ceftriaxone Sodium 1 gm/ (Sodium Chloride) 100 mls @ 100 mls/hr IVPB DAILY [facility]; Protocol Ipratropium [place] (Atrovent) 0.5 mg IH RQ6 PRN PRN Reason: Shortness of Breath Pantoprazole Sodium (Protonix Inj) 40 mg IVP DAILY [facility] Last Admin: 07/06/18 18:49 Dose: 40 mg Results - Vital Signs Recent Vital Signs: Last Vital Signs Temp 98.4 F 07/06/18 20:00 Pulse 55 L 07/07/18 03:00 Resp 16 07/07/18 03:00 BP 108/50 L 07/07/18 02:21 Pulse Ox 95 07/07/18 03:00 - Labs Result Diagrams: 07/06/18 01:04 07/06/18 01:04 Labs: Laboratory Results - last 24 hr 07/06/18 07/06/18 01:04 14:39 Puncture Site Lb pCO2 39 pO2 71 L HCO3 26.7 ABG pH 7.44 ABG Total CO2 27.7 ABG O2 Saturation 98.0 ABG Base Excess 2.3 ABG Hemoglobin 13.2 ABG Carboxyhemoglobin 2.3 H POC ABG HHb (Measured) 1.9 ABG Methemoglobin 1.1 Sean Test Na Hgb O2 Saturation 94.7 L Liter Flow 21.0 Sodium 132 Potassium 4.4 Chloride 97 L Carbon Dioxide 29 Anion Gap 10 BUN 17 Creatinine 0.9 Est GFR ( Amer) > 60 Est GFR (Non-Af Amer) > 60 Random Glucose 94 D Calcium 9.1 Phosphorus 3.8 Magnesium 1.9 Total Bilirubin 0.5 AST 19 ALT 10 L D Alkaline Phosphatase 70 Total Protein 6.8 Albumin 3.9 Globulin 3.0 Albumin/Globulin Ratio 1.3
[2018-07-07 06:07] LABS: BASO # 0.1 K/uL (0.0-0.2); BASO % 0.7 % (0.0-2.0); EOS # 0.3 K/uL (0.0-0.7); EOS % 4.4 % (0.0-4.0); HEMOGLOBIN 14.5 g/dL (12.0-18.0); LYMPH # 2.7 K/uL (1.0-4.3); LYMPH % 33.5 % (20.0-40.0); MEAN CELL VOLUME 69.4 fL (80.0-94.0); MEAN CORPUSCULAR HEMOGLOBIN 22.5 pg (27.0-31.0); MEAN CORPUSCULAR HGB CONC 32.4 g/dL (33.0-37.0); MEAN PLATELET VOLUME 9.4 fL (7.2-11.7); MONO # 0.9 K/uL (0.0-0.8); MONO % 10.7 % (0.0-10.0); NEUT % 50.7 % (50.0-75.0); NRBC % 0.1 % (0.0-2.0); RBC 6.42 Mil/uL (4.40-5.90); RED CELL DISTRIBUTION WIDTH 17.4 % (11.5-14.5); WHITE BLOOD COUNT 7.9 K/uL (4.8-10.8)
[2018-07-07 06:14] LABS: ALB/GLOB RATIO 1.1 (1.0-2.1); ALBUMIN 3.6 g/dL (3.5-5.0); ALT/SGPT 16 U/L (21-72); AST/SGOT 21 U/L (17-59); BLOOD UREA NITROGEN 12 mg/dL (9-20); CALCIUM 9.4 mg/dl (8.6-10.4); GFR NON-AFRICAN AMERICAN > 60
[2018-07-07 06:24] LABS: HDL CHOLESTEROL 49 mg/dL (30-70)
[2018-07-07 06:34] LABS: LDL CHOLESTEROL 87 mg/dL (0-129)
--- NOTE | 2018-07-07 09:24 | CP.CCUPN ---
<Deon Jama - Last Filed: 07/07/18 14:35> CCU Subjective - Physician Review Subjective (Free Text): 07/07/18 09:27 Patient seen and examined at bedside. No acute events overnight. Patient denies any shortness of breath, no longer c/o any hemoptysis at this time. He is having new L sided back pain with coughing. Denies chest pain, n/v/d/c, abdominal pain, dizziness. CCU Objective - Vital Signs / Intake & Output Vital Signs (Last 4 hours): Vital Signs Pulse Resp BP Pulse Ox 07/07/18 09:00 58 L 11 L 95 07/07/18 08:00 58 L 18 94 L 07/07/18 07:00 73 16 99 07/07/18 06:21 55 L 17 173/73 H 98 07/07/18 06:00 55 L 18 Intake and Output (Last 8hrs): Intake & Output 07/06/18 07/07/18 07/07/18 22:59 06:59 14:59 Intake Total 765 425 Output Total 600 900 Balance 165 -900 425 Weight 190 lb 0.135 oz Intake: Oral 765 425 Output: Urine 600 900 Urine, Voided 600 900 Other: # Voids Urine, Voided 1 1 1 # Bowel Movements 0 0 0 - Physical Exam Head: Positive for: Atraumatic, Normocephalic Pupils: Positive for: PERRL Extroacular Muscles: Positive for: EOMI Mouth: Positive for: Moist Mucous Membranes Neck: Positive for: Normal Range of Motion Respiratory/Chest: Positive for: Decreased Breath Sounds (L side). Negative for: Accessory Muscle Use, Rales, Rhonchi Cardiovascular: Positive for: Regular Rate and Rhythm, Normal S1, S2. Negative for: Murmurs Abdomen: Negative for: Tenderness, Distention Neurological: Positive for: GCS=15, CN II-XII Intact Skin: Positive for: Warm, Dry, Normal Color Psychiatric: Positive for: Alert, Oriented x 3 - Medications Active Medications: Active Medications Generic Name Dose Route Start Last Admin Trade Name Freq PRN Reason Stop Dose Admin Heparin Sodium (Porcine) 5,000 units 07/06/18 18:00 07/06/18 22:00 Heparin SC Not Given Q12 [facility] Ceftriaxone Sodium 1 gm/ 100 mls @ 100 mls/hr 07/07/18 10:00 Sodium Chloride IVPB DAILY [facility] Protocol Ipratropium [place] 0.5 mg 07/06/18 13:48 Atrovent IH RQ6 PRN Shortness of Breath Pantoprazole Sodium 40 mg 07/06/18 10:00 07/06/18 18:49 Protonix Inj IVP 40 mg DAILY [facility] Administration - Patient Studies Lab Studies: Lab Studies 07/07/18 07/07/18 07/07/18 Range/Units 05:54 05:52 05:52 WBC 7.9 (4.8-10.8) K/uL RBC 6.42 H (4.40-5.90) Mil/uL Hgb 14.5 (12.0-18.0) g/dL Hct 44.6 (35.0-51.0) % MCV 69.4 L (80.0-94.0) fL MCH 22.5 L (27.0-31.0) pg MCHC 32.4 L (33.0-37.0) g/dL RDW 17.4 H (11.5-14.5) % Plt Count 228 (130-400) K/uL MPV 9.4 (7.2-11.7) fL Neut % (Auto) 50.7 (50.0-75.0) % Lymph % (Auto) 33.5 (20.0-40.0) % [place] % (Auto) 10.7 H (0.0-10.0) % Eos % (Auto) 4.4 H (0.0-4.0) % Baso % (Auto) 0.7 (0.0-2.0) % Neut # (Auto) 4.0 (1.8-7.0) K/uL Lymph # (Auto) 2.7 (1.0-4.3) K/uL [place] # (Auto) 0.9 H (0.0-0.8) K/uL Eos # (Auto) 0.3 (0.0-0.7) K/uL Baso # (Auto) 0.1 (0.0-0.2) K/uL Puncture Site pCO2 (35-45) mm/Hg pO2 (80-100) mm/Hg HCO3 (21-28) mmol/L ABG pH (7.35-7.45) ABG Total CO2 (22-28) mmol/L ABG O2 Saturation (95-98) % ABG Base Excess (-2.0-3.0) mmol/L ABG Hemoglobin (11.7-17.4) g/dL ABG Carboxyhemoglobin (0.5-1.5) % POC ABG HHb (Measured) (0.0-5.0) % ABG Methemoglobin (0.0-3.0) % Sean Test Hgb O2 Saturation (95.0-98.0) % Liter Flow Sodium 135 (132-148) mmol/L Potassium 4.1 (3.6-5.2) mmol/L Chloride 99 (98-107) mmol/L Carbon Dioxide 28 (22-30) mmol/L Anion Gap 12 (10-20) BUN 12 (9-20) mg/dL Creatinine 0.7 L (0.8-1.5) mg/dL Est GFR ( Amer) > 60 Est GFR (Non-Af Amer) > 60 Random Glucose 90 (75-110) mg/dL Calcium 9.4 (8.6-10.4) mg/dl Phosphorus (2.5-4.5) mg/dL Magnesium (1.6-2.3) mg/dL Total Bilirubin 1.1 (0.2-1.3) mg/dL AST 21 (17-59) U/L ALT 16 L D (21-72) U/L Alkaline Phosphatase 62 (38-126) U/L Total Protein 6.8 (6.3-8.3) g/dL Albumin 3.6 (3.5-5.0) g/dL Globulin 3.2 (2.2-3.9) gm/dL Albumin/Globulin Ratio 1.1 (1.0-2.1) Triglycerides 172 H D (0-149) mg/dL Cholesterol 160 (0-199) mg/dL LDL Cholesterol Direct 87 (0-129) mg/dL HDL Cholesterol 49 (30-70) mg/dL 07/06/18 07/06/18 Range/Units 14:39 01:04 WBC (4.8-10.8) K/uL RBC (4.40-5.90) Mil/uL Hgb (12.0-18.0) g/dL Hct (35.0-51.0) % MCV (80.0-94.0) fL MCH (27.0-31.0) pg MCHC (33.0-37.0) g/dL RDW (11.5-14.5) % Plt Count (130-400) K/uL MPV (7.2-11.7) fL Neut % (Auto) (50.0-75.0) % Lymph % (Auto) (20.0-40.0) % [place] % (Auto) (0.0-10.0) % Eos % (Auto) (0.0-4.0) % Baso % (Auto) (0.0-2.0) % Neut # (Auto) (1.8-7.0) K/uL Lymph # (Auto) (1.0-4.3) K/uL [place] # (Auto) (0.0-0.8) K/uL Eos # (Auto) (0.0-0.7) K/uL Baso # (Auto) (0.0-0.2) K/uL Puncture Site Lb pCO2 39 (35-45) mm/Hg pO2 71 L (80-100) mm/Hg HCO3 26.7 (21-28) mmol/L ABG pH 7.44 (7.35-7.45) ABG Total CO2 27.7 (22-28) mmol/L ABG O2 Saturation 98.0 (95-98) % ABG Base Excess 2.3 (-2.0-3.0) mmol/L ABG Hemoglobin 13.2 (11.7-17.4) g/dL ABG Carboxyhemoglobin 2.3 H (0.5-1.5) % POC ABG HHb (Measured) 1.9 (0.0-5.0) % ABG Methemoglobin 1.1 (0.0-3.0) % Sean Test Na Hgb O2 Saturation 94.7 L (95.0-98.0) % Liter Flow 21.0 Sodium 132 (132-148) mmol/L Potassium 4.4 (3.6-5.2) mmol/L Chloride 97 L (98-107) mmol/L Carbon Dioxide 29 (22-30) mmol/L Anion Gap 10 (10-20) BUN 17 (9-20) mg/dL Creatinine 0.9 (0.8-1.5) mg/dL Est GFR ( Amer) > 60 Est GFR (Non-Af Amer) > 60 Random Glucose 94 D (75-110) mg/dL Calcium 9.1 (8.6-10.4) mg/dl Phosphorus 3.8 (2.5-4.5) mg/dL Magnesium 1.9 (1.6-2.3) mg/dL Total Bilirubin 0.5 (0.2-1.3) mg/dL AST 19 (17-59) U/L ALT 10 L D (21-72) U/L Alkaline Phosphatase 70 (38-126) U/L Total Protein 6.8 (6.3-8.3) g/dL Albumin 3.9 (3.5-5.0) g/dL Globulin 3.0 (2.2-3.9) gm/dL Albumin/Globulin Ratio 1.3 (1.0-2.1) Triglycerides (0-149) mg/dL Cholesterol (0-199) mg/dL LDL Cholesterol Direct (0-129) mg/dL HDL Cholesterol (30-70) mg/dL Laboratory Results - last 24 hr 07/06/18 07/06/18 07/07/18 01:04 14:39 05:52 WBC RBC Hgb Hct MCV MCH MCHC RDW Plt Count MPV Neut % (Auto) Lymph % (Auto) [place] % (Auto) Eos % (Auto) Baso % (Auto) Neut # (Auto) Lymph # (Auto) [place] # (Auto) Eos # (Auto) Baso # (Auto) Puncture Site Lb pCO2 39 pO2 71 L HCO3 26.7 ABG pH 7.44 ABG Total CO2 27.7 ABG O2 Saturation 98.0 ABG Base Excess 2.3 ABG Hemoglobin 13.2 ABG Carboxyhemoglobin 2.3 H POC ABG HHb (Measured) 1.9 ABG Methemoglobin 1.1 Sean Test Na Hgb O2 Saturation 94.7 L Liter Flow 21.0 Sodium 132 135 Potassium 4.4 4.1 Chloride 97 L 99 Carbon Dioxide 29 28 Anion Gap 10 12 BUN 17 12 Creatinine 0.9 0.7 L Est GFR ( Amer) > 60 > 60 Est GFR (Non-Af Amer) > 60 > 60 Random Glucose 94 D 90 Calcium 9.1 9.4 Phosphorus 3.8 Magnesium 1.9 Total Bilirubin 0.5 1.1 AST 19 21 ALT 10 L D 16 L D Alkaline Phosphatase 70 62 Total Protein 6.8 6.8 Albumin 3.9 3.6 Globulin 3.0 3.2 Albumin/Globulin Ratio 1.3 1.1 Triglycerides Cholesterol LDL Cholesterol Direct HDL Cholesterol 07/07/18 07/07/18 05:52 05:54 WBC 7.9 RBC 6.42 H Hgb 14.5 Hct 44.6 MCV 69.4 L MCH 22.5 L MCHC 32.4 L RDW 17.4 H Plt Count 228 MPV 9.4 Neut % (Auto) 50.7 Lymph % (Auto) 33.5 [place] % (Auto) 10.7 H Eos % (Auto) 4.4 H Baso % (Auto) 0.7 Neut # (Auto) 4.0 Lymph # (Auto) 2.7 [place] # (Auto) 0.9 H Eos # (Auto) 0.3 Baso # (Auto) 0.1 Puncture Site pCO2 pO2 HCO3 ABG pH ABG Total CO2 ABG O2 Saturation ABG Base Excess ABG Hemoglobin ABG Carboxyhemoglobin POC ABG HHb (Measured) ABG Methemoglobin Sean Test Hgb O2 Saturation Liter Flow Sodium Potassium Chloride Carbon Dioxide Anion Gap BUN Creatinine Est GFR ( Amer) Est GFR (Non-Af Amer) Random Glucose Calcium Phosphorus Magnesium Total Bilirubin AST ALT Alkaline Phosphatase Total Protein Albumin Globulin Albumin/Globulin Ratio Triglycerides 172 H D Cholesterol 160 LDL Cholesterol Direct 87 HDL Cholesterol 49 Radiology Impressions: Radiology Impressions Chest X-Ray 07/06/18 00:29 IMPRESSION: Interval basal atelectasis and or infiltrate. Interval small left pleural effusion. Chest CT 07/06/18 02:02 IMPRESSION: Left hilar/infrahilar/subcarinal "mass" suspicious for malignancy. Secondary compromise left lower lobe bronchus and left main pulmonary/proximal pulmonary artery branch encasement suspect. Subsegmental atelectasis left lower lobe medial aspect. Suspect regional central and left mediastinal/blending left hilar lymphadenopathy. Aberrant right subclavian artery developmental variant noted. Pulmonary emboli left lower lobe and subsegmental arterial branches.. Other findings as above. Concordant results (preliminary interpretation) provided by [facility]. EKG/Cardiology Studies: Cardiology / EKG Studies 07/06/18 12:41 EKG [ELECTROCARDIOGRAM] Stat Comment: Mode Of Transportation: PORTABLE Reason For Exam: CHANGES IN TELEMETRY Review of Systems - Review of Systems All systems: reviewed and no additional remarkable complaints except Critical Care Progress Note - Nutrition Nutrition: Nutrition Category Date Time Status Heart Healthy Diet [DIET] Diets 07/06/18 Breakfast Active Assessment/Plan - Assessment and Plan (Free Text) Assessment: 77 year old male with CC hemoptysis, found to have lung mass on CT. Patient is acutely medically stable for transfer to telemetry. Plan Pulm Left-sided pulmonary mass, left-sided pulmonary embolism Imaging -Chest Xray - cardiomegaly, possible infiltrate, pending official read -CT angio PE protocol - Multiple left lower lobe segmental branch pulm emboli. approx 5.5 x 4.9x 5.5 cm left inra hilar/left subcarinal/left hilar mass suspicious for malignancy encasing/infiltrate exerting mass effect on left, with encasement of the left main pulm artery. sussegmental atelectasis left lower lobe medial aspect. suspect regonal central and left mediastinal/left hilar lymphadenopathy. Critical care consult - Transfer to ICU for further management of PE/hemptosys Pulm consult- Dr Lopez - pending bronch with pulmonary mass biopsy -Transfer to telemetry. Patient breathing ORA in NAD -Hold on anticoagulation 2/2 hemoptysis -Plan for bronchoscopy with lung mass bx with Dr. Lopez - f/u Cardio HTN -History HTN not currently on meds -Monitor BP Endo -Lipid panel - mildly elevated TGs, otherwise WNL PPx DVT - AC c/i 2/2 hemoptysis GI ppx not indiciated at this time Assessment and plan d/w Dr. Lety Jama, PGY-1 <Russell Davidson - Last Filed: 07/07/18 18:30> CCU Objective - Vital Signs / Intake & Output Intake and Output (Last 8hrs): Intake & Output 07/07/18 07/07/18 07/07/18 06:59 14:59 22:59 Intake Total 425 Output Total 900 Balance -900 425 Weight 190 lb 0.135 oz Intake: Oral 425 Output: Urine 900 Urine, Voided 900 Other: # Voids Urine, Voided 1 1 # Bowel Movements 0 0 - Medications Active Medications: Active Medications Generic Name Dose Route Start Last Admin Trade Name Freq PRN Reason Stop Dose Admin Heparin Sodium (Porcine) 5,000 units 07/06/18 18:00 07/07/18 10:45 Heparin SC 5,000 units Q12 [facility] Administration Ceftriaxone Sodium 1 gm/ 100 mls @ 100 mls/hr 07/07/18 10:00 07/07/18 10:45 Sodium Chloride IVPB 100 mls/hr DAILY [facility] Administration Protocol Ipratropium [place] 0.5 mg 07/06/18 13:48 Atrovent IH RQ6 PRN Shortness of Breath Pantoprazole Sodium 40 mg 07/06/18 10:00 07/07/18 10:45 Protonix Inj IVP 40 mg DAILY [facility] Administration - Patient Studies Lab Studies: Microbiology Studies 07/06/18 14:40 MRSA Culture (Admit) - Final Naris MRSA NOT DETECTED Lab Studies 07/07/18 07/07/18 07/07/18 Range/Units 05:54 05:52 05:52 WBC 7.9 (4.8-10.8) K/uL RBC 6.42 H (4.40-5.90) Mil/uL Hgb 14.5 (12.0-18.0) g/dL Hct 44.6 (35.0-51.0) % MCV 69.4 L (80.0-94.0) fL MCH 22.5 L (27.0-31.0) pg MCHC 32.4 L (33.0-37.0) g/dL RDW 17.4 H (11.5-14.5) % Plt Count 228 (130-400) K/uL MPV 9.4 (7.2-11.7) fL Neut % (Auto) 50.7 (50.0-75.0) % Lymph % (Auto) 33.5 (20.0-40.0) % [place] % (Auto) 10.7 H (0.0-10.0) % Eos % (Auto) 4.4 H (0.0-4.0) % Baso % (Auto) 0.7 (0.0-2.0) % Neut # (Auto) 4.0 (1.8-7.0) K/uL Lymph # (Auto) 2.7 (1.0-4.3) K/uL [place] # (Auto) 0.9 H (0.0-0.8) K/uL Eos # (Auto) 0.3 (0.0-0.7) K/uL Baso # (Auto) 0.1 (0.0-0.2) K/uL Sodium 135 (132-148) mmol/L Potassium 4.1 (3.6-5.2) mmol/L Chloride 99 (98-107) mmol/L Carbon Dioxide 28 (22-30) mmol/L Anion Gap 12 (10-20) BUN 12 (9-20) mg/dL Creatinine 0.7 L (0.8-1.5) mg/dL Est GFR ( Amer) > 60 Est GFR (Non-Af Amer) > 60 Random Glucose 90 (75-110) mg/dL Calcium 9.4 (8.6-10.4) mg/dl Total Bilirubin 1.1 (0.2-1.3) mg/dL AST 21 (17-59) U/L ALT 16 L D (21-72) U/L Alkaline Phosphatase 62 (38-126) U/L Total Protein 6.8 (6.3-8.3) g/dL Albumin 3.6 (3.5-5.0) g/dL Globulin 3.2 (2.2-3.9) gm/dL Albumin/Globulin Ratio 1.1 (1.0-2.1) Triglycerides 172 H D (0-149) mg/dL Cholesterol 160 (0-199) mg/dL LDL Cholesterol Direct 87 (0-129) mg/dL HDL Cholesterol 49 (30-70) mg/dL Laboratory Results - last 24 hr 07/07/18 07/07/18 07/07/18 05:52 05:52 05:54 WBC 7.9 RBC 6.42 H Hgb 14.5 Hct 44.6 MCV 69.4 L MCH 22.5 L MCHC 32.4 L RDW 17.4 H Plt Count 228 MPV 9.4 Neut % (Auto) 50.7 Lymph % (Auto) 33.5 [place] % (Auto) 10.7 H Eos % (Auto) 4.4 H Baso % (Auto) 0.7 Neut # (Auto) 4.0 Lymph # (Auto) 2.7 [place] # (Auto) 0.9 H Eos # (Auto) 0.3 Baso # (Auto) 0.1 Sodium 135 Potassium 4.1 Chloride 99 Carbon Dioxide 28 Anion Gap 12 BUN 12 Creatinine 0.7 L Est GFR ( Amer) > 60 Est GFR (Non-Af Amer) > 60 Random Glucose 90 Calcium 9.4 Total Bilirubin 1.1 AST 21 ALT 16 L D Alkaline Phosphatase 62 Total Protein 6.8 Albumin 3.6 Globulin 3.2 Albumin/Globulin Ratio 1.1 Triglycerides 172 H D Cholesterol 160 LDL Cholesterol Direct 87 HDL Cholesterol 49 Radiology Impressions: Radiology Impressions Duplex Scan Lower Extremity Artery 07/06/18 12:25 IMPRESSION: Right: No evidence of deep or superficial vein thrombosis of the right lower extremity. Normal valve function noted of the right side. Left: No evidence of deep or superficial vein thrombosis of the left lower extremity. Normal valve function noted of the left side. Critical Care Progress Note - Nutrition Nutrition: Nutrition Category Date Time Status Heart Healthy Diet [DIET] Diets 07/06/18 Breakfast Active Attending/Attestation - Attestation I have personally seen and examined this patient.: Yes I have fully participated in the care of the patient.: Yes I have reviewed all pertinent clinical information: Yes Notes (Text): 07/07/18 18:28 I have seen and examined the patient. Medical records, lab studies, and imaging were reviewed by me and a management plan was formulated on multidisciplinary rounds with resident Dr. Jama. I agree with their documented assessment and plan. no further episodes of hemoptysis. Patient clinically stable for downgrade to the floors. Critical Care Time 35 minutes. Multi-disciplinary rounds were performed with house staff, nursing, speech therapy, respiratory therapy, pharmacy and nutrition with integrated input from the primary team/attending and other consulting services. The documented time is cumulative and includes review of patient data/exams/labs/chart review and examination of the patient on rounds and throughout the day; time is exclusive of any procedures or teaching time.
--- NOTE | 2018-07-07 09:49 | CP.PCM.PN ---
Subjective - Date & Time of Evaluation Date of Evaluation: 07/07/18 Time of Evaluation: 09:48 - Subjective Subjective: Cardiology Consult Progress Note for Dr. Anne Objective - Vital Signs/Intake and Output Vital Signs (last 24 hours): Temp Pulse Resp BP Pulse Ox 98.4 F 58 L 11 L 173/73 H 95 07/06/18 20:00 07/07/18 09:00 07/07/18 09:00 07/07/18 06:21 07/07/18 09:00 Intake and Output: 07/07/18 07/07/18 06:59 18:59 Intake Total 240 425 Output Total 1150 Balance -910 425 - Medications Medications: Current Medications Heparin Sodium (Porcine) (Heparin) 5,000 units SC Q12 [facility] Last Admin: 07/06/18 22:00 Dose: Not Given Ceftriaxone Sodium 1 gm/ (Sodium Chloride) 100 mls @ 100 mls/hr IVPB DAILY [facility]; Protocol Ipratropium [place] (Atrovent) 0.5 mg IH RQ6 PRN PRN Reason: Shortness of Breath Pantoprazole Sodium (Protonix Inj) 40 mg IVP DAILY [facility] Last Admin: 07/06/18 18:49 Dose: 40 mg - Labs Labs: 07/07/18 05:54 07/07/18 05:52 PT 12.0 SECONDS (9.7-12.2) 07/06/18 01:04 INR 1.1 07/06/18 01:04 APTT 33 SECONDS (21-34) 07/06/18 01:04
--- NOTE | 2018-07-07 10:52 | VASCLAB ---
Date of service: 07/06/2018 PROCEDURE: Lower Extremity Venous Duplex Exam. HISTORY: +PE, r/o DVT PRIORS: None. TECHNIQUE: Bilateral common femoral, femoral, popliteal and posterior tibial, peroneal and great saphenous veins were evaluated. Flow was assessed with color Doppler, compressibility, assessment of phasic flow and augmentation response. Report prepared by Christoph Duron, BS, RVT FINDINGS: RIGHT: 1. Common Femoral Vein: 1.1. Compressibility - Fully compressible: Thrombus - None : Flow - Phasic: Augmentation -Normal: Reflux - None. 2. Femoral Vein: 2.1. Compressibility - Fully compressible: Thrombus - None : Flow - Phasic: Augmentation -Normal: Reflux - None. 3. Popliteal Vein: 3.1. Compressibility - Fully compressible: Thrombus - None : Flow - Phasic: Augmentation -Normal: Reflux - None. 4. Posterior Tibial Vein: 4.1. Compressibility - Fully compressible: Thrombus - None: Flow - Phasic: Augmentation -Normal: Reflux - None. 5. Peroneal Vein: 5.1. Compressibility - Fully compressible: Thrombus - None: Flow - Phasic: Augmentation -Normal: Reflux - None. 6. Great Saphenous Vein: 6.1. Compressibility - Fully compressible: Thrombus - None: Flow - Phasic: Augmentation - Normal: Reflux - None. LEFT: 1. Common Femoral Vein: 1.1. Compressibility - Fully compressible: Thrombus - None: Flow - Phasic: Augmentation -Normal: Reflux - None. 2. Femoral Vein: 2.1. Compressibility - Fully compressible: Thrombus - None: Flow - Phasic: Augmentation -Normal: Reflux - None. 3. Popliteal Vein: 3.1. Compressibility - Fully compressible: Thrombus - None : Flow - Phasic: Augmentation -Normal: Reflux - None. 4. Posterior Tibial Vein: 4.1. Compressibility - Fully compressible: Thrombus - None: Flow - Phasic: Augmentation -Normal: Reflux - None. 5. Peroneal Vein: 5.1. Compressibility - Fully compressible: Thrombus - None: Flow - Phasic: Augmentation -Normal: Reflux - None. 6. Great Saphenous Vein: 6.1. Compressibility - Fully compressible: Thrombus - None: Flow - Phasic: Augmentation - Normal: Reflux - None. OTHER FINDINGS: Right: None significant. Left: None significant. IMPRESSION: Right: No evidence of deep or superficial vein thrombosis of the right lower extremity. Normal valve function noted of the right side. Left: No evidence of deep or superficial vein thrombosis of the left lower extremity. Normal valve function noted of the left side.
--- NOTE | 2018-07-07 12:09 | CP.PCM.PN ---
Subjective - Date & Time of Evaluation Date of Evaluation: 07/07/18 Time of Evaluation: 12:07 - Subjective Subjective: Pulmonary Progress Note for Dr. Lopez's service S/E at bedside Denies sob or hemoptysis Pending bronchoscopy for staging Objective - Vital Signs/Intake and Output Vital Signs (last 24 hours): Temp Pulse Resp BP Pulse Ox 98.4 F 58 L 11 L 173/73 H 95 07/06/18 20:00 07/07/18 09:00 07/07/18 09:00 07/07/18 06:21 07/07/18 09:00 Intake and Output: 07/07/18 07/07/18 06:59 18:59 Intake Total 240 425 Output Total 1150 Balance -910 425 - Medications Medications: Current Medications Heparin Sodium (Porcine) (Heparin) 5,000 units SC Q12 [facility] Last Admin: 07/07/18 10:45 Dose: 5,000 units Ceftriaxone Sodium 1 gm/ (Sodium Chloride) 100 mls @ 100 mls/hr IVPB DAILY [facility]; Protocol Last Admin: 07/07/18 10:45 Dose: 100 mls/hr Ipratropium [place] (Atrovent) 0.5 mg IH RQ6 PRN PRN Reason: Shortness of Breath Pantoprazole Sodium (Protonix Inj) 40 mg IVP DAILY [facility] Last Admin: 07/07/18 10:45 Dose: 40 mg - Labs Labs: 07/07/18 05:54 07/07/18 05:52 PT 12.0 SECONDS (9.7-12.2) 07/06/18 01:04 INR 1.1 07/06/18 01:04 APTT 33 SECONDS (21-34) 07/06/18 01:04 - Constitutional Appears: Non-toxic, No Acute Distress - Head Exam Head Exam: NORMAL INSPECTION - Eye Exam Eye Exam: EOMI, Normal appearance - Respiratory Exam Respiratory Exam: NORMAL BREATHING PATTERN. absent: Decreased Breath Sounds, Respiratory Distress - Cardiovascular Exam Cardiovascular Exam: REGULAR RHYTHM, +S1, +S2 - GI/Abdominal Exam GI & Abdominal Exam: Soft, Normal Bowel Sounds - Neurological Exam Neurological Exam: Alert, Awake - Skin Skin Exam: Dry, Intact Assessment and Plan - Assessment and Plan (Free Text) Assessment: 77 yo male w/ PMH of HTN and HLD admitted for hemoptysis. Pulm consulted for hemoptysis. Plan: A: Hemoptysis Lung Mass Pulmonary embolism P: Chest CT findings concerning for hilar mass and pulmonary embolism Transferred to ICU for aggressive monitoring in the setting of hemoptysis and PE IV ceftriaxone Atrovent 0.5mg q6h for sob Hemodynamically stable Heparin q12 5000 units Bronchoscopy for tissue diagnosis Daily CBCs/CMP Case d/w DR. Lopez PGY-1 Karina Duggan
--- NOTE | 2018-07-07 13:17 | CP.PCM.PN ---
<Chelly Taylor - Last Filed: 07/07/18 16:48> Subjective - Date & Time of Evaluation Date of Evaluation: 07/07/18 Time of Evaluation: 13:14 - Subjective Subjective: Patient seen and examined at bedside. No overnight events reported. Patient denies any chest pain, palpitations, or SOB. Vitals are stable. Objective - Vital Signs/Intake and Output Vital Signs (last 24 hours): Temp Pulse Resp BP Pulse Ox 98.4 F 58 L 11 L 173/73 H 95 07/06/18 20:00 07/07/18 09:00 07/07/18 09:00 07/07/18 06:21 07/07/18 09:00 Intake and Output: 07/07/18 07/07/18 06:59 18:59 Intake Total 240 425 Output Total 1150 Balance -910 425 - Medications Medications: Current Medications Heparin Sodium (Porcine) (Heparin) 5,000 units SC Q12 [facility] Last Admin: 07/07/18 10:45 Dose: 5,000 units Ceftriaxone Sodium 1 gm/ (Sodium Chloride) 100 mls @ 100 mls/hr IVPB DAILY [facility]; Protocol Last Admin: 07/07/18 10:45 Dose: 100 mls/hr Ipratropium [place] (Atrovent) 0.5 mg IH RQ6 PRN PRN Reason: Shortness of Breath Pantoprazole Sodium (Protonix Inj) 40 mg IVP DAILY [facility] Last Admin: 07/07/18 10:45 Dose: 40 mg - Labs Labs: 07/07/18 05:54 07/07/18 05:52 PT 12.0 SECONDS (9.7-12.2) 07/06/18 01:04 INR 1.1 07/06/18 01:04 APTT 33 SECONDS (21-34) 07/06/18 01:04 - Constitutional Appears: Well, Non-toxic - Head Exam Head Exam: ATRAUMATIC, NORMAL INSPECTION, NORMOCEPHALIC - Eye Exam Eye Exam: Normal appearance - ENT Exam ENT Exam: Mucous Membranes Moist - Respiratory Exam Respiratory Exam: Clear to Ausculation Bilateral, NORMAL BREATHING PATTERN. absent: Accessory Muscle Use - Cardiovascular Exam Cardiovascular Exam: RRR, +S1, +S2 - GI/Abdominal Exam GI & Abdominal Exam: Soft. absent: Tenderness - Extremities Exam Extremities Exam: Normal Inspection - Psychiatric Exam Psychiatric exam: Normal Affect, Normal Mood Assessment and Plan - Assessment and Plan (Free Text) Assessment: 77 Male with Lung Mass consulted for Cardiac arrhythmias Plan: R/O ACS Will Review ECHO F/U TSH/Free T4 Patient discussed with Dr. Omid Taylor, PGY-2 <Vineet Anne - Last Filed: 07/08/18 05:54> Objective - Vital Signs/Intake and Output Vital Signs (last 24 hours): Temp Pulse Resp BP Pulse Ox 97.9 F 53 L 19 128/101 H 96 07/07/18 20:00 07/08/18 05:00 07/08/18 05:00 07/08/18 00:20 07/07/18 18:23 Intake and Output: 07/07/18 07/08/18 18:59 06:59 Intake Total 425 Balance 425 - Medications Medications: Current Medications Heparin Sodium (Porcine) (Heparin) 5,000 units SC Q12 CHRIS Last Admin: 07/07/18 22:00 Dose: 5,000 units Ceftriaxone Sodium 1 gm/ (Sodium Chloride) 100 mls @ 100 mls/hr IVPB DAILY CHRIS; Protocol Last Admin: 07/07/18 10:45 Dose: 100 mls/hr Ipratropium [place] (Atrovent) 0.5 mg IH RQ6 PRN PRN Reason: Shortness of Breath Pantoprazole Sodium (Protonix Inj) 40 mg IVP DAILY CHRIS Last Admin: 07/07/18 10:45 Dose: 40 mg - Labs Labs: 07/07/18 05:54 07/07/18 05:52 PT 12.0 SECONDS (9.7-12.2) 07/06/18 01:04 INR 1.1 07/06/18 01:04 APTT 33 SECONDS (21-34) 07/06/18 01:04 Assessment and Plan - Assessment and Plan (Free Text) Plan: Patient seen and personally evaluated by me. Plan of care d/w the medical i d sales and as documented
--- NOTE | 2018-07-07 15:12 | CP.PCM.CON ---
History of Present Illness - History of Present Illness History of Present Illness: Palliative consult requested by Doctor Wiley for goals of care discussion Patient is a 77 yo male admitted from home with blood tinged sputum X 3 days. Denied fever, was able to tolerate PO intake, had no contact with sick people. Patient reported weight loss, but he believes it happened as he cut down on sugar intake. CT zachary : Left lung mass, suspicious for malignancy, PE Pulmonary consult called, bronchosopy advised, patient agreed. patient admitted to ICU for close monitoring, treated with Neb. Tx and Rocephin IV. PMH: HTN, HDL Soc. 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 Hx: denied Review of Systems - Constitutional Constitutional: absent: As Per HPI, Anorexia, Chills, Daytime Sleepiness, Excessive Sweating, Fatigue, Fever, Frequent Falls, Headache, Increased Appetite, Lethargy, Malaise, Night Sweats, Snoring, Sleep Apnea, Weight Gain, Weight Loss, Weakness, Other - EENT Eyes: absent: As Per HPI, Blind Spots, Blurred Vision, Change in Vision, Decreased Night Vision, Diplopia, Discharge, Dry Eye, Exophthalmos, Floaters, Irritation, Itchy Eyes, Loss of Peripheral Vision, Pain, Photophobia, Requires C orrective Lenses, Sees Flashes, Spots in Vision, Tunnel Vision, Other Visual Disturbances, Loss of Vision, Other Ears: absent: As Per HPI, Decreased Hearing, Ear Discharge, Ear Pain, Tinnitus, Abnormal Hearing, Disequilibrium, Dizziness, Other Nose/Mouth/Throat: absent: As Per HPI, Epistaxis, Nasal Congestion, Nasal Discharge, Nasal Obstruction, Nasal Trauma, Nose Pain, Post Nasal Drip, Sinus Pain, Sinus Pressure, Bleeding Gums, Change in Voice, Dental Pain, Dry Mouth, Dysphagia, Halitosis, Hoarsness, Lip Swelling, Mouth Lesions, Mouth Pain, Od ynophagia, Sore Throat, Throat Swelling, Tongue Swelling, Facial Pain, Neck Pain, Neck Mass, Other - Cardiovascular Cardiovascular: absent: As Per HPI, Acrocyanosis, Chest Pain, Chest Pain at Rest, Chest Pain with Activity, Claudication, Diaphoresis, Dyspnea, Dyspnea on Exertion, Edema, Irregular Heart Rhythm, Pain Radiating to Arm/Neck/Jaw, Leg Edema, Leg Ulcers, Lightheadedness, Orthopnea, Palpitations, Paroxysmal Nocturnal Dyspnea, Pedal Edema, Radiating Pain, Rapid Heart Rate, Slow Heart Rate, Syncope, Other - Respiratory Respiratory: Cough, Pain with Coughing - Gastrointestinal Gastrointestinal: absent: As Per HPI, Abdominal Pain, Belching, Bloating, Change in Bowel Habits, Change in Stool Character, Coffee Ground Emesis, Constipation, Cramping, Diarrhea, Dyspepsia, Dysphagia, Early Satiety, Excessive Flatus, Fecal Incontinence, Heartburn, Hematemesis, Hematochezia, Loose Stools, Melena, Nausea, Odynophagia, Temesmus, Vomiting, Other - Genitourinary Genitourinary: absent: As Per HPI, Change in Urinary Stream, Difficulty Uri nating, Dysuria, Flank Pain, Hematuria, Pyuria, Nocturia, Urinary Incontinence, Urinary Frequency, Urinary Hesitance, Urinary Urgency, Voiding Freq/Small Amts, Freq UTI, Hx Renal/Bladder Calculi, Hx /Renal Surgery, Bladder Distension, Other - Musculoskeletal Musculoskeletal: absent: As Per HPI, Abnormal Gait, Arthralgias, Atrophy, Back Pain, Deformity, Joint Swelling, Limited Range of Motion, Loss of Height, Muscle Cramps, Muscle Weakness, Myalgias, Neck Pain, Numbness, Radiating Pain into Limb, Stiffness, Tingling, Other - Integumentary Integumentary: absent: As Per HPI, Acne, Alopecia, Bleeding Lesions, Change in Hair, Change in Nails, Change in Pigmentation, Changing Lesions, Dry Skin, Erythema, Furuncle, Hirsutism, Lesions, New Lesions, Non-Healing Lesions, Photosensitivity, Pruritus, Rash, Skin Pain, Skin Ulcer, Sores, Striae, Swelling, Unusual Bruising, Wounds, Jaundice, Other - Neurological Neurological: absent: As Per HPI, Abnormal Gait, Abnormal Hearing, Abnormal Movements, Abnormal Speech, Behavioral Changes, Burning Sensations, Confusion, Convulsions, Disequilibrium, Dizziness, Numbness, Focal Weakness, Frequent Falls, Headaches, Lack of Coordination, Loss of Vision, Memory Loss, Paresthesias, Radicular Pain, Restless Legs, Sensory Deficit, Syncope, Tingling, Tremor, Vertigo, Weakness, Other Visual Disturbances, Other - Psychiatric Psychiatric: absent: As Per HPI, Abnormal Sleep Pattern, Anhedonia, Anxiety, Auditory Hallucinations, Behavioral Changes, Change in Appetite, Change in Libido, Confusion, Depression, Difficulty Concentrating, Hallucinations, Homicidal Ideation, Hopelessness, Irritability, Memory Loss, Mood Swings, Panic Attacks, Paranoia, Suicidal Ideation, Visual Hallucinations, Tactile Keith lucinations, Other - Endocrine Endocrine: absent: As Per HPI, Change in Body Appearance, Change in Libido, Cold Intolorance, Deepening of Voice, Excessive Sweating, Fatigue, Flushing, Heat Intolorance, Increase in Ring/Shoe/Hat Size, Palpitations, Polydipsia, P olyphagia, Polyuria, Other - Hematologic/Lymphatic Hematologic: absent: As Per HPI, Easy Bleeding, Easy Bruising, Lymphadenopathy, Other Past Patient History - Past Social History Smoking Status: Heavy Smoker > 10 Cigarettes Daily - CARDIAC Hx Hypertension: Yes - MUSCULOSKELETAL/RHEUMATOLOGICAL Hx Falls: No - PSYCHIATRIC Hx Substance Use: No - SURGICAL HISTORY Hx Cardiac Catheterization: Yes (2004) - ANESTHESIA Hx Anesthesia: Yes Hx Anesthesia Reactions: No Hx Malignant Hyperthermia: No Meds Allergies/Adverse Reactions: Allergies Allergy/AdvReac Type Severity Reaction Status Date / Time novocaine Allergy Uncoded 11/21/13 10:08 - Medications Medications: Current Medications Heparin Sodium (Porcine) (Heparin) 5,000 units SC Q12 [facility] Last Admin: 07/07/18 10:45 Dose: 5,000 units Ceftriaxone Sodium 1 gm/ (Sodium Chloride) 100 mls @ 100 mls/hr IVPB DAILY [facility]; Protocol Last Admin: 07/07/18 10:45 Dose: 100 mls/hr Ipratropium [place] (Atrovent) 0.5 mg IH RQ6 PRN PRN Reason: Shortness of Breath Pantoprazole Sodium (Protonix Inj) 40 mg IVP DAILY [facility] Last Admin: 07/07/18 10:45 Dose: 40 mg Physical Exam - Constitutional Appears: Chronically Ill - Head Exam Head Exam: ATRAUMATIC, NORMAL INSPECTION, NORMOCEPHALIC - Eye Exam Eye Exam: EOMI, Normal appearance, PERRL Pupil Exam: NORMAL ACCOMODATION, PERRL - ENT Exam ENT Exam: Mucous Membranes Moist, Normal Exam - Neck Exam Neck exam: Positive for: Normal Inspection - Respiratory Exam Respiratory Exam: Decreased Breath Sounds, Rhonchi, NORMAL BREATHING PATTERN Additional comments: productive cough - Cardiovascular Exam Cardiovascular Exam: Bradycardia - GI/Abdominal Exam GI & Abdominal Exam: Normal Bowel Sounds, Soft - Rectal Exam Rectal Exam: Deferred - Exam Exam: NORMAL INSPECTION - Extremities Exam Extremities exam: Positive for: normal inspection - Back Exam Back exam: NORMAL INSPECTION - Neurological Exam Neurological exam: Alert, Normal Gait, Oriented x3, Reflexes Normal - Psychiatric Exam Psychiatric exam: Normal Affect, Normal Mood - Skin Skin Exam: Dry, Normal Color, Warm Results - Vital Signs Recent Vital Signs: Last Vital Signs Temp 98.4 F 07/06/18 20:00 Pulse 93 H 07/07/18 14:00 Resp 20 07/07/18 14:00 BP 116/91 H 07/07/18 13:21 Pulse Ox 93 L 07/07/18 14:00 - Labs Result Diagrams: 07/07/18 05:54 07/07/18 05:52 Labs: Laboratory Results - last 24 hr 07/07/18 07/07/18 07/07/18 05:52 05:52 05:54 WBC 7.9 RBC 6.42 H Hgb 14.5 Hct 44.6 MCV 69.4 L MCH 22.5 L MCHC 32.4 L RDW 17.4 H Plt Count 228 MPV 9.4 Neut % (Auto) 50.7 Lymph % (Auto) 33.5 [place] % (Auto) 10.7 H Eos % (Auto) 4.4 H Baso % (Auto) 0.7 Neut # (Auto) 4.0 Lymph # (Auto) 2.7 [place] # (Auto) 0.9 H Eos # (Auto) 0.3 Baso # (Auto) 0.1 Sodium 135 Potassium 4.1 Chloride 99 Carbon Dioxide 28 Anion Gap 12 BUN 12 Creatinine 0.7 L Est GFR ( Amer) > 60 Est GFR (Non-Af Amer) > 60 Random Glucose 90 Calcium 9.4 Total Bilirubin 1.1 AST 21 ALT 16 L D Alkaline Phosphatase 62 Total Protein 6.8 Albumin 3.6 Globulin 3.2 Albumin/Globulin Ratio 1.1 Triglycerides 172 H D Cholesterol 160 LDL Cholesterol Direct 87 HDL Cholesterol 49 Assessment & Plan - Assessment and Plan (Free Text) Assessment: Palliative consult Full Code, there is no Advance directive on chart, PPS 60% I reviewed Medical records, all diagnostic studies, examined and interviewed patient in the bed. Patient is alert, oriented X3 with affect and speech that are appropriate. Skin dry, intact, Hb 14.5. Breathing normal, a lot of ronchi on auscultation, moist productive cough, there is blood in sputum since admission. O2Sat 94% RA. HR 58, BP 116/91, denies chest pain or chest tightness. Abdomen soft, active bowel sounds, denies constipation/abdominal pain. Ambulatory, able to participate in many of ADLs. Goals of care discussed with patient. I elicited his understanding of his condition. Patient knew that there is " something" on his lungs and further test were needed. Patient understands the purpose of Bronchoscopy and agrees with procedure. I further discussed purpose of bronchosopy and differences between beningn and malignant mass. patient stated that if he is diagnosed with cancer he would like to precede with Oncology treatment. Patient would like to get out of bed, as his neck is bothering him from being in bed for a long time. Impression * Possible lung cancer * Moist productive cough * Anticipatory anxiety * Neck pain due to prolonged bed rest Suggestion * Continue neb Tx. * Keep patient up to date with all new studies to decrease his anxiety * Assist patient OOB to chair daily. * Encourage active ROM neck exercices. I will continue to fallow up with patient once Bronchoscopy is done. Advance care discussion 30 min.
--- NOTE | 2018-07-07 16:44 | CARD ---
APPROVED REPORT Date of service: 07/06/2018 EKG Measurement Heart [id number] <Conclusion> Sinus rhythm with premature atrial complexes with aberrant conduction Otherwise normal ECG
--- NOTE | 2018-07-07 16:44 | CARD ---
APPROVED REPORT Date of service: 07/06/2018 EKG Measurement Heart [id number] <Conclusion> Sinus rhythm with very frequent PACs - PVCs Prolonged QT Abnormal ECG
[2018-07-08 06:11] LABS: BASO # 0.1 K/uL (0.0-0.2); BASO % 0.8 % (0.0-2.0); EOS # 0.3 K/uL (0.0-0.7); EOS % 3.6 % (0.0-4.0); HEMOGLOBIN 14.7 g/dL (12.0-18.0); LYMPH # 2.6 K/uL (1.0-4.3); LYMPH % 31.9 % (20.0-40.0); MEAN CELL VOLUME 68.6 fL (80.0-94.0); MEAN CORPUSCULAR HEMOGLOBIN 22.8 pg (27.0-31.0); MEAN CORPUSCULAR HGB CONC 33.2 g/dL (33.0-37.0); MEAN PLATELET VOLUME 9.1 fL (7.2-11.7); MONO # 0.9 K/uL (0.0-0.8); MONO % 10.5 % (0.0-10.0); NEUT # 4.4 K/uL (1.8-7.0); NEUT % 53.2 % (50.0-75.0); RBC 6.44 Mil/uL (4.40-5.90); RED CELL DISTRIBUTION WIDTH 17.1 % (11.5-14.5); WHITE BLOOD COUNT 8.3 K/uL (4.8-10.8)
[2018-07-08 06:40] LABS: ALB/GLOB RATIO 1.3 (1.0-2.1); ALBUMIN 3.8 g/dL (3.5-5.0); ALT/SGPT 12 U/L (21-72); AST/SGOT 24 U/L (17-59); BLOOD UREA NITROGEN 13 mg/dL (9-20); CALCIUM 9.3 mg/dl (8.6-10.4); GFR NON-AFRICAN AMERICAN > 60
--- NOTE | 2018-07-08 07:13 | CP.PCM.PN ---
Subjective - Date & Time of Evaluation Date of Evaluation: 07/08/18 Time of Evaluation: 09:00 - Subjective Subjective: PGY-[address] Frost Patient seen and examined at bedside. Patient reports no complaints, patient asking when will bronchoscopy be done. reports no more hemoptysis. Patient denies fever, chills, chest pain, palpitations, sob, abdominal pain, nausea, vomiting, diarrhea, constipation or urinary problems. patient tolerating diet. Objective - Vital Signs/Intake and Output Vital Signs (last 24 hours): Temp Pulse Resp BP Pulse Ox 97.9 F 53 L 19 128/101 H 96 07/07/18 20:00 07/08/18 05:00 07/08/18 05:00 07/08/18 00:20 07/07/18 18:23 - Medications Medications: Current Medications Heparin Sodium (Porcine) (Heparin) 5,000 units SC Q12 [facility] Last Admin: 07/07/18 22:00 Dose: 5,000 units Ceftriaxone Sodium 1 gm/ (Sodium Chloride) 100 mls @ 100 mls/hr IVPB DAILY [facility]; Protocol Last Admin: 07/07/18 10:45 Dose: 100 mls/hr Ipratropium [place] (Atrovent) 0.5 mg IH RQ6 PRN PRN Reason: Shortness of Breath Pantoprazole Sodium (Protonix Inj) 40 mg IVP DAILY [facility] Last Admin: 07/07/18 10:45 Dose: 40 mg - Labs Labs: 07/08/18 06:02 07/08/18 06:02 PT 12.0 SECONDS (9.7-12.2) 07/06/18 01:04 INR 1.1 07/06/18 01:04 APTT 33 SECONDS (21-34) 07/06/18 01:04 - Constitutional Appears: Non-toxic, No Acute Distress - Head Exam Head Exam: NORMAL INSPECTION - Eye Exam Eye Exam: EOMI - ENT Exam ENT Exam: Mucous Membranes Moist - Respiratory Exam Respiratory Exam: Rales, NORMAL BREATHING PATTERN. absent: Decreased Breath Sounds - Cardiovascular Exam Cardiovascular Exam: REGULAR RHYTHM, +S1, +S2 - GI/Abdominal Exam GI & Abdominal Exam: Soft, Normal Bowel Sounds. absent: Distended, Tenderness - Extremities Exam Extremities Exam: Full ROM, Normal Inspection. absent: Pedal Edema, Tenderness - Back Exam Back Exam: NORMAL INSPECTION - Neurological Exam Neurological Exam: Alert, Awake, Oriented x3 - Psychiatric Exam Psychiatric exam: Normal Affect, Normal Mood - Skin Skin Exam: Dry, Intact, Normal Color, Warm Assessment and Plan - Assessment and Plan (Free Text) Assessment: 77 yo M admitted for PE, lung mass suspicious for malignancy, on Heparin SC, planned for diagnostic bronch by pulm tomorrow morning. Plan: Hemoptysis Left Pulmonary Embolism Chest Xray -interval basal atelectasis and or infiltrate, interval small left pleural effusion. CT angio PE protocol - Multiple left lower lobe segmental branch pulm emboli. approx 5.5 x 4.9x 5.5 cm left inra hilar/left subcarinal/left hilar mass suspicious for malignancy encasing/infiltrate exerting mass effect on left, with encasement of the left main pulm artery. sussegmental atelectasis left lower lobe medial aspect. suspect regonal central and left mediastinal/left hilar lymphadenopathy. LE doppler scan - no evidence of DVTs b/l Pulm consult- Dr Lopez- follow up recs Heparin SC 5000 IU Q12H (hold past midnight for bronch ) cont IV ceftriaxone Atrovent Q6 PRN for SOB Left pulm mass r/o malignancy CTA results as above - hilar mass suspicious for malignancy Bronchoscopy scheduled for tomorrow as per Pulm NPO midnight held heparin tonight for procedure pulm consult - Dr Lopez - f/u recs New onset irregular heart rhythm HR 60s echo -Normal LV sys Function, trace MR/Mild TR TSH/free T4 - WNL Cardio consult - Dr Anne - cont medical management Hx of HTN normotensive continue monitor vitals Hx of HLD Patient not taking medication f/u lipid panel - TGA mild elevated, other levels wnl ppx DVT - heprain 5000 SC (hold for bronch in am) GI - not indicated HHD Plan discussed with Dr Santosh Kaminski, PGY-1
--- NOTE | 2018-07-08 13:41 | CP.PCM.PN ---
<Chelly Taylor - Last Filed: 07/08/18 17:06> Subjective - Date & Time of Evaluation Date of Evaluation: 07/08/18 Time of Evaluation: 09:45 - Subjective Subjective: Patient seen and examined at bedside. No overnight events reported. Patient denies any chest pain, palpitations, or SOB. Vitals are stable. He is asking when his bronchosopy will be. Reports Nausea, denies vomiting. Objective - Vital Signs/Intake and Output Vital Signs (last 24 hours): Temp Pulse Resp BP Pulse Ox 97.9 F 84 20 133/58 L 96 07/07/18 20:00 07/08/18 08:05 07/08/18 08:05 07/08/18 08:05 07/07/18 18:23 Intake and Output: 07/08/18 07/08/18 06:59 18:59 Intake Total 300 Output Total 300 Balance 0 - Medications Medications: Current Medications Heparin Sodium (Porcine) (Heparin) 5,000 units SC Q12 [facility] Last Admin: 07/08/18 09:30 Dose: 5,000 units Ceftriaxone Sodium 1 gm/ (Sodium Chloride) 100 mls @ 100 mls/hr IVPB DAILY [facility]; Protocol Last Admin: 07/08/18 09:29 Dose: 100 mls/hr Ipratropium [place] (Atrovent) 0.5 mg IH RQ6 PRN PRN Reason: Shortness of Breath Pantoprazole Sodium (Protonix Inj) 40 mg IVP DAILY [facility] Last Admin: 07/08/18 09:29 Dose: 40 mg - Labs Labs: 07/08/18 06:02 07/08/18 06:02 PT 12.0 SECONDS (9.7-12.2) 07/06/18 01:04 INR 1.1 07/06/18 01:04 APTT 33 SECONDS (21-34) 07/06/18 01:04 - Additional Findings Additional findings: - Constitutional Appears: Well, Non-toxic - Head Exam Head Exam: ATRAUMATIC, NORMAL INSPECTION, NORMOCEPHALIC - Eye Exam Eye Exam: Normal appearance - ENT Exam ENT Exam: Mucous Membranes Moist - Respiratory Exam Respiratory Exam: Clear to Ausculation Bilateral, NORMAL BREATHING PATTERN. absent: Accessory Muscle Use - Cardiovascular Exam Cardiovascular Exam: RRR, +S1, +S2 - GI/Abdominal Exam GI & Abdominal Exam: Soft. absent: Tenderness - Extremities Exam Extremities Exam: Normal Inspection - Psychiatric Exam Psychiatric exam: Normal Affect, Normal Mood Assessment and Plan - Assessment and Plan (Free Text) Assessment: 77 Male with Lung Mass consulted for Cardiac arrhythmias Plan: R/O ACS ECHO: Normal LV sys Function, trace MR/Mild TR TSH/Free T4 Ordered - WNL Mgmt: Cont. Current Medical management. Patient discussed with Dr. Omid Taylor, PGY-2 <Vineet Anne - Last Filed: 07/08/18 22:17> Objective - Vital Signs/Intake and Output Vital Signs (last 24 hours): Temp Pulse Resp BP Pulse Ox 97.2 F L 55 L 20 144/85 96 07/08/18 15:25 07/08/18 15:25 07/08/18 15:25 07/08/18 15:25 07/08/18 15:25 Intake and Output: 07/08/18 07/09/18 18:59 06:59 Intake Total 760 Output Total 700 Balance 60 - Medications Medications: Current Medications Heparin Sodium (Porcine) (Heparin) 5,000 units SC Q12 [facility] Last Admin: 07/08/18 09:30 Dose: 5,000 units Ceftriaxone Sodium 1 gm/ (Sodium Chloride) 100 mls @ 100 mls/hr IVPB DAILY [facility]; Protocol Last Admin: 07/08/18 09:29 Dose: 100 mls/hr Ipratropium [place] (Atrovent) 0.5 mg IH RQ6 PRN PRN Reason: Shortness of Breath Pantoprazole Sodium (Protonix Inj) 40 mg IVP DAILY [facility] Last Admin: 07/08/18 09:29 Dose: 40 mg - Labs Labs: 07/08/18 06:02 07/08/18 06:02 PT 12.0 SECONDS (9.7-12.2) 07/06/18 01:04 INR 1.1 07/06/18 01:04 APTT 33 SECONDS (21-34) 07/06/18 01:04 Assessment and Plan - Assessment and Plan (Free Text) Plan: Patient seen and evaluated personally by me. Plan of care d/w the medical billing coordinator and as documented
--- NOTE | 2018-07-08 14:56 | CP.PCM.PN ---
<Karina Duggan - Last Filed: 07/08/18 14:54> Subjective - Date & Time of Evaluation Date of Evaluation: 07/08/18 Time of Evaluation: 14:54 - Subjective Subjective: Pulm Progress Note for Dr. Lopez's service S/E at bedside Bronch in AM no hemoptysis no sob reported Objective - Vital Signs/Intake and Output Vital Signs (last 24 hours): Temp Pulse Resp BP Pulse Ox 97.6 F 56 L 20 146/82 97 07/08/18 14:25 07/08/18 14:25 07/08/18 14:25 07/08/18 14:25 07/08/18 14:25 Intake and Output: 07/08/18 07/08/18 06:59 18:59 Intake Total 760 Output Total 700 Balance 60 - Medications Medications: Current Medications Heparin Sodium (Porcine) (Heparin) 5,000 units SC Q12 [facility] Last Admin: 07/08/18 09:30 Dose: 5,000 units Ceftriaxone Sodium 1 gm/ (Sodium Chloride) 100 mls @ 100 mls/hr IVPB DAILY [facility]; Protocol Last Admin: 07/08/18 09:29 Dose: 100 mls/hr Ipratropium [place] (Atrovent) 0.5 mg IH RQ6 PRN PRN Reason: Shortness of Breath Pantoprazole Sodium (Protonix Inj) 40 mg IVP DAILY [facility] Last Admin: 07/08/18 09:29 Dose: 40 mg - Labs Labs: 07/08/18 06:02 07/08/18 06:02 PT 12.0 SECONDS (9.7-12.2) 07/06/18 01:04 INR 1.1 07/06/18 01:04 APTT 33 SECONDS (21-34) 07/06/18 01:04 - Additional Findings Additional findings: - Constitutional Appears: Non-toxic, No Acute Distress - Head Exam Head Exam: NORMAL INSPECTION - Eye Exam Eye Exam: EOMI, Normal appearance - Respiratory Exam Respiratory Exam: NORMAL BREATHING PATTERN. absent: Decreased Breath Sounds, Respiratory Distress - Cardiovascular Exam Cardiovascular Exam: REGULAR RHYTHM, +S1, +S2 - GI/Abdominal Exam GI & Abdominal Exam: Soft, Normal Bowel Sounds - Neurological Exam Neurological Exam: Alert, Awake - Skin Skin Exam: Dry, Intact Assessment and Plan - Assessment and Plan (Free Text) Assessment: 77 yo male w/ PMH of HTN and HLD admitted for hemoptysis. Pulm consulted for hemoptysis. Plan: A: Hemoptysis Lung Mass Pulmonary embolism P: Chest CT findings concerning for hilar mass and pulmonary embolism Transferred to ICU for aggressive monitoring in the setting of hemoptysis and PE IV ceftriaxone Atrovent 0.5mg q6h for sob Hemodynamically stable Heparin q12 5000 units Bronchoscopy for tissue diagnosis in AM; NPO and AC held for AM procedure starting at midnight Daily CBCs/CMP Case d/w DR. Lopez PGY-1 Karina Duggan <Frandy Lopez S - Last Filed: 07/09/18 15:55> Objective - Vital Signs/Intake and Output Vital Signs (last 24 hours): Temp Pulse Resp BP Pulse Ox 97.2 F L 55 L 20 144/85 96 07/08/18 15:25 07/08/18 15:25 07/08/18 15:25 07/08/18 15:25 07/08/18 15:25 Intake and Output: 07/08/18 07/08/18 06:59 18:59 Intake Total 760 Output Total 700 Balance 60 - Medications Medications: Current Medications Heparin Sodium (Porcine) (Heparin) 5,000 units SC Q12 [facility] Last Admin: 07/08/18 09:30 Dose: 5,000 units Ceftriaxone Sodium 1 gm/ (Sodium Chloride) 100 mls @ 100 mls/hr IVPB DAILY [facility]; Protocol Last Admin: 07/08/18 09:29 Dose: 100 mls/hr Ipratropium [place] (Atrovent) 0.5 mg IH RQ6 PRN PRN Reason: Shortness of Breath Pantoprazole Sodium (Protonix Inj) 40 mg IVP DAILY [facility] Last Admin: 07/08/18 09:29 Dose: 40 mg - Labs Labs: 07/08/18 06:02 07/08/18 06:02 PT 12.0 SECONDS (9.7-12.2) 07/06/18 01:04 INR 1.1 07/06/18 01:04 APTT 33 SECONDS (21-34) 07/06/18 01:04 Attending/Attestation - Attestation I have personally seen and examined this patient.: Yes I have fully participated in the care of the patient.: Yes I have reviewed all pertinent clinical information, including history, physical exam and plan: Yes Notes (Text): Patient seen and examined Bronchoscopy and biopsy Continue present treatment
[2018-07-09] MEDS ORDERED: EPINEPHrine 1 mg/ml (1:1000) Inj ONE ×2 (07:23→10:19)
[2018-07-09] MEDS ORDERED: Lidocaine 2% MPF (5 ml) Inj ONE (07:24)
--- NOTE | 2018-07-09 07:29 | CP.PCM.PN ---
Subjective - Date & Time of Evaluation Date of Evaluation: 07/09/18 Time of Evaluation: 11:00 - Subjective Subjective: Medicine progress note for Dr. Frost. Patient seen and examined at bedside. Patient is s/p bronchoscopy. Patient reports feeling fine and reports his breathing is much improved. Patient denies chest pain, headaches, vision changes, nausea, vomiting, diarrhea, constipation. Objective - Vital Signs/Intake and Output Vital Signs (last 24 hours): Temp Pulse Resp BP Pulse Ox 98.0 F 54 L 18 124/82 96 07/09/18 00:00 07/09/18 04:00 07/09/18 00:00 07/09/18 00:00 07/09/18 00:00 - Medications Medications: Current Medications Heparin Sodium (Porcine) (Heparin) 5,000 units SC Q12 [facility] Last Admin: 07/08/18 09:30 Dose: 5,000 units Ceftriaxone Sodium 1 gm/ (Sodium Chloride) 100 mls @ 100 mls/hr IVPB DAILY [facility]; Protocol Last Admin: 07/08/18 09:29 Dose: 100 mls/hr Ipratropium [place] (Atrovent) 0.5 mg IH RQ6 PRN PRN Reason: Shortness of Breath Pantoprazole Sodium (Protonix Inj) 40 mg IVP DAILY [facility] Last Admin: 07/08/18 09:29 Dose: 40 mg - Labs Labs: 07/08/18 06:02 07/08/18 06:02 PT 12.0 SECONDS (9.7-12.2) 07/06/18 01:04 INR 1.1 07/06/18 01:04 APTT 33 SECONDS (21-34) 07/06/18 01:04 - Constitutional Appears: Non-toxic, No Acute Distress - Head Exam Head Exam: NORMAL INSPECTION - Eye Exam Eye Exam: EOMI, Normal appearance - ENT Exam ENT Exam: Mucous Membranes Moist - Respiratory Exam Respiratory Exam: Decreased Breath Sounds, NORMAL BREATHING PATTERN. absent: Rales, Rhonchi, Wheezes - Cardiovascular Exam Cardiovascular Exam: +S1, +S2. absent: Murmur - GI/Abdominal Exam GI & Abdominal Exam: Soft, Normal Bowel Sounds. absent: Firm, Guarding, Rigid - Extremities Exam Extremities Exam: Full ROM, Normal Inspection. absent: Calf Tenderness, Pedal Edema - Back Exam Back Exam: absent: CVA tenderness (L), CVA tenderness (R) - Neurological Exam Neurological Exam: Alert, Awake, Oriented x3 - Psychiatric Exam Psychiatric exam: Normal Affect, Normal Mood - Skin Skin Exam: Dry, Normal Color, Warm Assessment and Plan - Assessment and Plan (Free Text) Assessment: 77 yo M admitted for PE, lung mass suspicious for malignancy, s/p bronch 07/09. Will require heparin drip for PE started on 07/10. Plan: Hemoptysis Left Pulmonary Embolism Chest Xray -interval basal atelectasis and or infiltrate, interval small left pleural effusion. CT angio PE protocol - Multiple left lower lobe segmental branch pulm emboli. approx 5.5 x 4.9x 5.5 cm left inra hilar/left subcarinal/left hilar mass suspicious for malignancy encasing/infiltrate exerting mass effect on left, with encasement of the left main pulm artery. sussegmental atelectasis left lower lobe medial aspect. suspect regonal central and left mediastinal/left hilar lymphadenopathy. LE doppler scan - no evidence of DVTs b/l IV ceftriaxone Atrovent Q6 PRN for SOB Heparin drip to start 07/10 Left pulm mass r/o malignancy CTA results as above - hilar mass suspicious for malignancy Pulm consult- Dr Lopez- follow up recs s/p Bronchoscopy 07/09 by pulm F/u path results New onset irregular heart rhythm HR 60s echo -Normal LV sys Function, trace MR/Mild TR TSH/free T4 - WNL Cardio consult - Dr Anne - cont medical management Hx of HTN normotensive continue monitor vitals Hx of HLD lipid panel - TGA mild elevated, other levels wnl no home medications will consider statin therapy outpatient ppx DVT/PE: Heparin drip to start 07/10 GI - not indicated HHD
[2018-07-09 08:08] LABS: BASO % 0.7 % (0.0-2.0); EOS # 0.3 K/uL (0.0-0.7); EOS % 4.8 % (0.0-4.0); HEMOGLOBIN 15.1 g/dL (12.0-18.0); LYMPH # 2.1 K/uL (1.0-4.3); LYMPH % 31.2 % (20.0-40.0); MEAN CELL VOLUME 69.1 fL (80.0-94.0); MEAN CORPUSCULAR HEMOGLOBIN 21.9 pg (27.0-31.0); MEAN CORPUSCULAR HGB CONC 31.7 g/dL (33.0-37.0); MEAN PLATELET VOLUME 8.6 fL (7.2-11.7); MONO # 0.7 K/uL (0.0-0.8); MONO % 10.8 % (0.0-10.0); NEUT # 3.6 K/uL (1.8-7.0); NEUT % 52.5 % (50.0-75.0); NRBC % 0.1 % (0.0-2.0); RBC 6.9 Mil/uL (4.40-5.90); RED CELL DISTRIBUTION WIDTH 17.4 % (11.5-14.5); WHITE BLOOD COUNT 6.8 K/uL (4.8-10.8)
[2018-07-09 08:24] LABS: ALB/GLOB RATIO 1.1 (1.0-2.1); ALBUMIN 3.9 g/dL (3.5-5.0); ALT/SGPT 20 U/L (21-72); AST/SGOT 26 U/L (17-59); BLOOD UREA NITROGEN 12 mg/dL (9-20); CALCIUM 9.8 mg/dl (8.6-10.4); GFR NON-AFRICAN AMERICAN > 60
[2018-07-09] MEDS ORDERED: Midazolam 2 MG/2 ML VIAL ONE (08:35)
[2018-07-09] MEDS ORDERED: Propofol 10 mg/ml Inj (20 ML) ONE (08:36)
[2018-07-09] MEDS ORDERED: Succinylcholine Chloride 20 mg/ml Syr (5 ml) IV ONE (08:36)
[2018-07-09] MEDS ORDERED: ePHEDrine 50 mg/ml Inj ONE (09:42)
--- NOTE | 2018-07-09 11:11 | RAD ---
Date of service: 07/09/2018 HISTORY: R/O PTX S/P BRONCH W/ Bx COMPARISON: 07/06/2018. FINDINGS: LUNGS: Limited portable examination the lungs are well inflated. There is moderate pulmonary venous congestion and mild interstitial pulmonary edema. No focal consolidation PLEURA: No right pleural effusion or pneumothorax. The left costophrenic angle is excluded from the film. CARDIOVASCULAR: Persistent mild cardiomegaly with prominent central vasculature. No aortic atherosclerotic calcifications present. OSSEOUS STRUCTURES: Within normal limits for the patient's age. VISUALIZED UPPER ABDOMEN: Normal. OTHER FINDINGS: None. IMPRESSION: Limited portable examination. No acute findings. Specifically, no evidence for pneumothorax. The left costophrenic angle is excluded from the film. Moderate pulmonary venous congestion and mild interstitial pulmonary edema.
--- NOTE | 2018-07-09 13:24 | CP.PCM.PN ---
<Karina Duggan - Last Filed: 07/09/18 14:27> Subjective - Date & Time of Evaluation Date of Evaluation: 07/09/18 Time of Evaluation: 13:21 - Subjective Subjective: Pulmonary Progress Note for Dr. Lopez's service S/E at endoscopy suite. Patient had a Bronchoscopy today. Patient denies hemoptysis, sob, fever, nausea, vomiting, and diarrhea. Objective - Vital Signs/Intake and Output Vital Signs (last 24 hours): Temp Pulse Resp BP Pulse Ox 97.2 F L 100 H 14 103/74 96 07/09/18 11:10 07/09/18 11:10 07/09/18 11:10 07/09/18 11:10 07/09/18 11:10 Intake and Output: 07/09/18 07/09/18 06:59 18:59 Intake Total 475 Balance 475 - Medications Medications: Current Medications Heparin Sodium (Porcine) (Heparin) 5,000 units SC Q12 [facility] Last Admin: 07/08/18 09:30 Dose: 5,000 units Ceftriaxone Sodium 1 gm/ (Sodium Chloride) 100 mls @ 100 mls/hr IVPB DAILY [facility]; Protocol Last Admin: 07/09/18 10:36 Dose: Not Given Lactated Ringer's (Lactated Ringer's) 1,000 mls @ 100 mls/hr IV .Q10H [facility] Ipratropium [place] (Atrovent) 0.5 mg IH RQ6 PRN PRN Reason: Shortness of Breath Pantoprazole Sodium (Protonix Inj) 40 mg IVP DAILY [facility] Last Admin: 07/09/18 10:36 Dose: Not Given - Labs Labs: 07/09/18 08:01 07/09/18 08:01 PT 12.0 SECONDS (9.7-12.2) 07/06/18 01:04 INR 1.1 07/06/18 01:04 APTT 33 SECONDS (21-34) 07/06/18 01:04 - Constitutional Appears: Non-toxic, No Acute Distress - Head Exam Head Exam: NORMAL INSPECTION - Eye Exam Eye Exam: EOMI, Normal appearance - Respiratory Exam Respiratory Exam: NORMAL BREATHING PATTERN. absent: Decreased Breath Sounds - Cardiovascular Exam Cardiovascular Exam: REGULAR RHYTHM - GI/Abdominal Exam GI & Abdominal Exam: Soft, Normal Bowel Sounds - Neurological Exam Neurological Exam: Oriented x3 - Skin Skin Exam: Dry, Intact Assessment and Plan - Assessment and Plan (Free Text) Assessment: 77 yo male w/ PMH of HTN and HLD admitted for hemoptysis. Pulm consulted for hemoptysis. Plan: A: Hemoptysis Lung Mass Pulmonary embolism P: Chest CT findings concerning for hilar mass and pulmonary embolism Bronchoscopy 07/09. F/u pathology CXR 07/09 showed no evidence of pneumothorax. Moderate pulm-lina congestion and mild interstitial pulm edema. Transferred to regular floor from ICU continue IV ceftriaxone continue Atrovent 0.5mg q6h for sob continue lactate ringers @ 100 ml/hr Hemodynamically stable Heparin q12 5000 units Daily CBCs/CMP Case d/w DR. Lopez PGY-1 Karina Duggan <Frandy Lopez S - Last Filed: 07/09/18 15:53> Objective - Vital Signs/Intake and Output Vital Signs (last 24 hours): Temp Pulse Resp BP Pulse Ox 97.2 F L 100 H 14 103/74 96 07/09/18 11:10 07/09/18 11:10 07/09/18 11:10 07/09/18 11:10 07/09/18 11:10 Intake and Output: 07/09/18 07/09/18 06:59 18:59 Intake Total 475 Balance 475 - Medications Medications: Current Medications Heparin Sodium (Porcine) (Heparin) 5,000 units SC Q12 [facility] Last Admin: 07/08/18 09:30 Dose: 5,000 units Ceftriaxone Sodium 1 gm/ (Sodium Chloride) 100 mls @ 100 mls/hr IVPB DAILY [facility]; Protocol Last Admin: 07/09/18 10:36 Dose: Not Given Lactated Ringer's (Lactated Ringer's) 1,000 mls @ 100 mls/hr IV .Q10H [facility] Ipratropium [place] (Atrovent) 0.5 mg IH RQ6 PRN PRN Reason: Shortness of Breath Pantoprazole Sodium (Protonix Inj) 40 mg IVP DAILY [facility] Last Admin: 07/09/18 10:36 Dose: Not Given - Labs Labs: 07/09/18 08:01 07/09/18 08:01 PT 12.0 SECONDS (9.7-12.2) 07/06/18 01:04 INR 1.1 07/06/18 01:04 APTT 33 SECONDS (21-34) 07/06/18 01:04 Attending/Attestation - Attestation I have personally seen and examined this patient.: Yes I have fully participated in the care of the patient.: Yes I have reviewed all pertinent clinical information, including history, physical exam and plan: Yes Notes (Text): Patient seen and examined Status post bronchoscopy/EBUS biopsy Bleeding from left upper lobe bronchus noted Start heparin from tomorrow
[2018-07-09] MEDS: Lactated Ringer's 1,000 ML IV SCH ×2 (16:48→20:00)
[2018-07-09 19:45] VITALS: RESP 20
[2018-07-10] MEDS: Lactated Ringer's 1,000 ML IV SCH ×2 (02:46→06:00)
--- NOTE | 2018-07-10 07:26 | CP.PCM.PN ---
Subjective - Date & Time of Evaluation Date of Evaluation: 07/09/18 Time of Evaluation: 17:10 - Subjective Subjective: Patient seen and examined. Patient denies chest pain and dyspnea Objective - Vital Signs/Intake and Output Vital Signs (last 24 hours): Temp Pulse Resp BP Pulse Ox 98.0 F 54 L 18 124/82 96 07/09/18 00:00 07/09/18 04:00 07/09/18 00:00 07/09/18 00:00 07/09/18 00:00 - Medications Medications: Current Medications Heparin Sodium (Porcine) (Heparin) 5,000 units SC Q12 [facility] Last Admin: 07/08/18 09:30 Dose: 5,000 units Ceftriaxone Sodium 1 gm/ (Sodium Chloride) 100 mls @ 100 mls/hr IVPB DAILY [facility]; Protocol Last Admin: 07/08/18 09:29 Dose: 100 mls/hr Ipratropium [place] (Atrovent) 0.5 mg IH RQ6 PRN PRN Reason: Shortness of Breath Pantoprazole Sodium (Protonix Inj) 40 mg IVP DAILY [facility] Last Admin: 07/08/18 09:29 Dose: 40 mg - Labs Labs: 07/08/18 06:02 07/08/18 06:02 PT 12.0 SECONDS (9.7-12.2) 07/06/18 01:04 INR 1.1 07/06/18 01:04 APTT 33 SECONDS (21-34) 07/06/18 01:04 - Constitutional Appears: Non-toxic, No Acute Distress - Head Exam Head Exam: NORMAL INSPECTION - Eye Exam Eye Exam: EOMI, Normal appearance - ENT Exam ENT Exam: Mucous Membranes Moist - Respiratory Exam Respiratory Exam: Decreased Breath Sounds, NORMAL BREATHING PATTERN. absent: Ra les, Rhonchi, Wheezes - Cardiovascular Exam Cardiovascular Exam: +S1, +S2. absent: Murmur - GI/Abdominal Exam GI & Abdominal Exam: Soft, Normal Bowel Sounds. absent: Firm, Guarding, Rigid - Extremities Exam Extremities Exam: Full ROM, Normal Inspection. absent: Calf Tenderness, Pedal Edema - Back Exam Back Exam: absent: CVA tenderness (L), CVA tenderness (R) - Neurological Exam Neurological Exam: Alert, Awake, Oriented x3 - Psychiatric Exam Psychiatric exam: Normal Affect, Normal Mood - Skin Skin Exam: Dry, Normal Color, Warm Assessment and Plan - Assessment and Plan (Free Text) Assessment: 77 yo M admitted for PE, lung mass suspicious for malignancy, s/p bronch 07/09. Will require heparin drip for PE started on 07/10. Plan: Hemoptysis Left Pulmonary Embolism Chest Xray -interval basal atelectasis and or infiltrate, interval small left pleural effusion. CT angio PE protocol - Multiple left lower lobe segmental branch pulm emboli. approx 5.5 x 4.9x 5.5 cm left inra hilar/left subcarinal/left hilar mass suspicious for malignancy encasing/infiltrate exerting mass effect on left, with encasement of the left main pulm artery. sussegmental atelectasis left lower lobe medial aspect. suspect regonal central and left mediastinal/left hilar lymphadenopathy. LE doppler scan - no evidence of DVTs b/l IV ceftriaxone Atrovent Q6 PRN for SOB Heparin drip to start 07/10 Left pulm mass r/o malignancy CTA results as above - hilar mass suspicious for malignancy Pulm consult- Dr Lopez- follow up recs s/p Bronchoscopy 07/09 by pulm F/u path results New onset irregular heart rhythm HR 60s echo -Normal LV sys Function, trace MR/Mild TR TSH/free T4 - WNL Hx of HTN normotensive continue monitor vitals Hx of HLD lipid panel - TGA mild elevated, other levels wnl no home medications will consider statin therapy outpatient ppx DVT/PE: Heparin drip to start 07/10 GI - not indicated HHD Objective - Vital Signs/Intake and Output Vital Signs (last 24 hours): Temp Pulse Resp BP Pulse Ox 98.0 F 48 L 20 108/58 L 95 07/09/18 23:25 07/10/18 03:25 07/09/18 23:25 07/09/18 23:25 07/09/18 23:25 Intake and Output: 07/10/18 07/10/18 06:59 18:59 Intake Total 700 Balance 700 - Medications Medications: Current Medications Heparin Sodium (Porcine) (Heparin) 5,000 units SC Q12 [facility] Last Admin: 07/08/18 09:30 Dose: 5,000 units Ceftriaxone Sodium 1 gm/ (Sodium Chloride) 100 mls @ 100 mls/hr IVPB DAILY [facility]; Protocol Last Admin: 07/09/18 10:36 Dose: Not Given Lactated Ringer's (Lactated Ringer's) 1,000 mls @ 100 mls/hr IV .Q10H [facility] Last Admin: 07/10/18 02:46 Dose: 100 mls/hr Ipratropium [place] (Atrovent) 0.5 mg IH RQ6 PRN PRN Reason: Shortness of Breath Pantoprazole Sodium (Protonix Inj) 40 mg IVP DAILY [facility] Last Admin: 07/09/18 10:36 Dose: Not Given - Labs Labs: 07/09/18 08:01 07/09/18 08:01 PT 12.0 SECONDS (9.7-12.2) 07/06/18 01:04 INR 1.1 07/06/18 01:04 APTT 33 SECONDS (21-34) 07/06/18 01:04
--- NOTE | 2018-07-10 07:34 | CP.PCM.PN ---
Subjective - Date & Time of Evaluation Date of Evaluation: 07/10/18 Time of Evaluation: 08:00 - Subjective Subjective: Medicine Progress Note for Dr. Frost: Patient was seen and examined at bedside in the AM. Patient states he has minor left sided upper back pain. Patient denies chest pain, shortness of breath, nausea, vomiting, diarrhea, constipation, fever, chills or headache. Patient states he is ready to go home. Objective - Vital Signs/Intake and Output Vital Signs (last 24 hours): Temp Pulse Resp BP Pulse Ox 97.5 F L 58 L 20 136/75 96 07/10/18 07:20 07/10/18 07:20 07/10/18 07:20 07/10/18 07:20 07/10/18 07:20 Intake and Output: 07/10/18 07/10/18 06:59 18:59 Intake Total 700 Balance 700 - Medications Medications: Current Medications Heparin Sodium (Porcine) (Heparin) 5,000 units SC Q12 [facility] Last Admin: 07/08/18 09:30 Dose: 5,000 units Ceftriaxone Sodium 1 gm/ (Sodium Chloride) 100 mls @ 100 mls/hr IVPB DAILY [facility]; Protocol Last Admin: 07/09/18 10:36 Dose: Not Given Lactated Ringer's (Lactated Ringer's) 1,000 mls @ 100 mls/hr IV .Q10H [facility] Last Admin: 07/10/18 02:46 Dose: 100 mls/hr Ipratropium [place] (Atrovent) 0.5 mg IH RQ6 PRN PRN Reason: Shortness of Breath Pantoprazole Sodium (Protonix Inj) 40 mg IVP DAILY [facility] Last Admin: 07/09/18 10:36 Dose: Not Given - Labs Labs: 07/09/18 08:01 07/09/18 08:01 PT 12.0 SECONDS (9.7-12.2) 07/06/18 01:04 INR 1.1 07/06/18 01:04 APTT 33 SECONDS (21-34) 07/06/18 01:04 - Constitutional Appears: No Acute Distress - Head Exam Head Exam: ATRAUMATIC, NORMAL INSPECTION - Eye Exam Eye Exam: EOMI, Normal appearance - ENT Exam ENT Exam: Mucous Membranes Moist - Respiratory Exam Respiratory Exam: Clear to Ausculation Bilateral, NORMAL BREATHING PATTERN - Cardiovascular Exam Cardiovascular Exam: REGULAR RHYTHM, +S1, +S2 - GI/Abdominal Exam GI & Abdominal Exam: Soft, Normal Bowel Sounds. absent: Tenderness - Extremities Exam Extremities Exam: Normal Inspection - Neurological Exam Neurological Exam: Alert, Awake, Oriented x3 - Psychiatric Exam Psychiatric exam: Normal Affect - Skin Skin Exam: Normal Color Assessment and Plan - Assessment and Plan (Free Text) Assessment: 77 yo M admitted for PE, lung mass suspicious for malignancy, s/p bronch 07/09. Will require heparin drip for PE started on 07/10. Plan: Hemoptysis Left Pulmonary Embolism - Imaging: * Chest Xray -interval basal atelectasis and or infiltrate, interval small left pleural effusion. * CT angio PE protocol - Multiple left lower lobe segmental branch pulm emboli. approx 5.5 x 4.9x 5.5 cm left inra hilar/left subcarinal/left hilar mass suspicious for malignancy encasing/infiltrate exerting mass effect on left, with encasement of the left main pulm artery. segmental atelectasis left lower lobe medial aspect. suspect regonal central and left mediastinal/left hilar lymphadenopathy. * LE doppler scan - no evidence of DVTs b/l - Medications: * IV ceftriaxone (started 07/07/18) * Atrovent Q6 PRN for SOB * Heparin IV - low dose Left pulm mass r/o malignancy - CTA results as above - hilar mass suspicious for malignancy - Pulm consult: Dr Lopez --> help appreciated - s/p Bronchoscopy 07/09 by pulm * F/u path results New onset irregular heart rhythm - HR 60s - ECHO: EF 53%; Normal LV sys Function, trace MR/Mild TR - TSH/free T4 - WNL - Cardiology Consult: Dr Anne --> help appreciated * per Dr. Anne continue medical management History of HTN - Normotensive - Continue monitor vitals History of HLD lipid panel - TGA mild elevated, other levels wnl no home medications will consider statin therapy outpatient Prophylaxis DVT/PE: Heparin drip to start 07/10 GI - not indicated Disposition: Spoke with Dr. Lopez, when patient does not have pain and tolerating food will be able to go home on Eliquis. Case discussed with Dr. Santosh Perez PGY-2
[2018-07-10 07:58] LABS: BASO % 0.7 % (0.0-2.0); EOS # 0.3 K/uL (0.0-0.7); EOS % 4.7 % (0.0-4.0); HEMOGLOBIN 14.1 g/dL (12.0-18.0); LYMPH # 2.4 K/uL (1.0-4.3); LYMPH % 33.9 % (20.0-40.0); MEAN CELL VOLUME 69.6 fL (80.0-94.0); MEAN CORPUSCULAR HEMOGLOBIN 23.1 pg (27.0-31.0); MEAN CORPUSCULAR HGB CONC 33.2 g/dL (33.0-37.0); MEAN PLATELET VOLUME 8.9 fL (7.2-11.7); MONO # 0.8 K/uL (0.0-0.8); MONO % 11.3 % (0.0-10.0); NEUT # 3.4 K/uL (1.8-7.0); NEUT % 49.4 % (50.0-75.0); NRBC % 0.2 % (0.0-2.0); RBC 6.1 Mil/uL (4.40-5.90); RED CELL DISTRIBUTION WIDTH 17.4 % (11.5-14.5); WHITE BLOOD COUNT 6.9 K/uL (4.8-10.8)
[2018-07-10 08:15] LABS: ALB/GLOB RATIO 1.2 (1.0-2.1); ALBUMIN 3.6 g/dL (3.5-5.0); ALT/SGPT 17 U/L (21-72); AST/SGOT 33 U/L (17-59); BLOOD UREA NITROGEN 11 mg/dL (9-20); CALCIUM 9.3 mg/dl (8.6-10.4); GFR NON-AFRICAN AMERICAN > 60
--- NOTE | 2018-07-10 13:57 | CP.PCM.PN ---
Subjective - Date & Time of Evaluation Date of Evaluation: 07/10/18 Time of Evaluation: 12:40 - Subjective Subjective: Patient seen and examined Lying comfortably in no distress Complaining of cough but no hemoptysis Afebrile Status post bronchoscopy biopsy and endobronchal ultrasound biopsy Consider starting IV heparin for pulmonary embolism Follow-up pathology report Objective - Vital Signs/Intake and Output Vital Signs (last 24 hours): Temp Pulse Resp BP Pulse Ox 97.5 F L 65 20 136/75 96 07/10/18 07:20 07/10/18 08:44 07/10/18 07:20 07/10/18 07:20 07/10/18 07:20 Intake and Output: 07/10/18 07/10/18 06:59 18:59 Intake Total 700 800 Output Total 800 Balance 700 0 - Medications Medications: Current Medications Heparin Sodium (Porcine) (Heparin) 5,000 units SC Q12 [facility] Last Admin: 07/08/18 09:30 Dose: 5,000 units Ceftriaxone Sodium 1 gm/ (Sodium Chloride) 100 mls @ 100 mls/hr IVPB DAILY [facility]; Protocol Last Admin: 07/10/18 10:03 Dose: 100 mls/hr Ipratropium [place] (Atrovent) 0.5 mg IH RQ6 PRN PRN Reason: Shortness of Breath - Labs Labs: 07/10/18 08:06 07/10/18 07:44 PT 12.0 SECONDS (9.7-12.2) 07/06/18 01:04 INR 1.1 07/06/18 01:04 APTT 33 SECONDS (21-34) 07/06/18 01:04
[2018-07-10] MEDS ORDERED: Heparin25000 units/250ml 1/2NS 25,000 UNITS/250 ML BAG IV PRN (14:04)
--- NOTE | 2018-07-10 17:27 | CP.PCM.DIS ---
Provider - Provider Date of Admission: 07/06/18 05:03 Attending physician: Martin Frost Jr, MD Consults: 07/06/18 11:01 Pulmonology Consult Routine Comment: Consulting Provider: Frandy Lopez Consulting Physician: Frandy Lopez Reason for Consult: Lung mass, PE, hemoptysis 07/06/18 11:34 Critical Care Consult Routine Comment: Consulting Provider: Frandy Lopez Consulting Physician: Frandy Lopez Reason for Consult: PE, lung mass, hemoptosys 07/06/18 15:09 Cardiology Consult Routine Comment: new onset irregular heartrate Consulting Provider: Vineet Anne Consulting Physician: Vineet Anne Reason for Consult: new onset irregular heartrate 07/07/18 08:23 Palliative Care Consult Routine Comment: Consulting Provider: Jaqui Antunez Physician Instructions: Reason For Exam: New Lung Mass Time Spent in preparation of Discharge (in minutes): 40 Hospital Course - Lab Results Lab Results: Micro Results 07/08/18 15:43 Naris MRSA Culture - Final MRSA NOT DETECTED 07/09/18 12:10 Bronchial Washings Gram Stain - Final 07/09/18 12:10 Bronchial Washings Bronchial Culture - Preliminary NO GROWTH AFTER 24 HOURS 07/06/18 14:40 Naris MRSA Culture (Admit) - Final MRSA NOT DETECTED Most Recent Lab Values WBC 6.9 K/uL (4.8-10.8) 07/10/18 08:06 RBC 6.10 Mil/uL (4.40-5.90) H 07/10/18 08:06 Hgb 14.1 g/dL (12.0-18.0) 07/10/18 08:06 Hct 42.4 % (35.0-51.0) 07/10/18 08:06 MCV 69.6 fL (80.0-94.0) L 07/10/18 08:06 MCH 23.1 pg (27.0-31.0) L 07/10/18 08:06 MCHC 33.2 g/dL (33.0-37.0) 07/10/18 08:06 RDW 17.4 % (11.5-14.5) H 07/10/18 08:06 Plt Count 269 K/uL (130-400) 07/10/18 08:06 MPV 8.9 fL (7.2-11.7) 07/10/18 08:06 Neut % (Auto) 49.4 % (50.0-75.0) L 07/10/18 08:06 Lymph % (Auto) 33.9 % (20.0-40.0) 07/10/18 08:06 [place] % (Auto) 11.3 % (0.0-10.0) H 07/10/18 08:06 Eos % (Auto) 4.7 % (0.0-4.0) H 07/10/18 08:06 Baso % (Auto) 0.7 % (0.0-2.0) 07/10/18 08:06 Neut # (Auto) 3.4 K/uL (1.8-7.0) 07/10/18 08:06 Lymph # (Auto) 2.4 K/uL (1.0-4.3) 07/10/18 08:06 [place] # (Auto) 0.8 K/uL (0.0-0.8) 07/10/18 08:06 Eos # (Auto) 0.3 K/uL (0.0-0.7) 07/10/18 08:06 Baso # (Auto) 0.0 K/uL (0.0-0.2) 07/10/18 08:06 PT 12.0 SECONDS (9.7-12.2) 07/06/18 01:04 INR 1.1 07/06/18 01:04 APTT 33 SECONDS (21-34) 07/06/18 01:04 Puncture Site Lb 07/06/18 14:39 pCO2 39 mm/Hg (35-45) 07/06/18 14:39 pO2 71 mm/Hg (80-100) L 07/06/18 14:39 HCO3 26.7 mmol/L (21-28) 07/06/18 14:39 ABG pH 7.44 (7.35-7.45) 07/06/18 14:39 ABG Total CO2 27.7 mmol/L (22-28) 07/06/18 14:39 ABG O2 Saturation 98.0 % (95-98) 07/06/18 14:39 ABG Base Excess 2.3 mmol/L (-2.0-3.0) 07/06/18 14:39 ABG Hemoglobin 13.2 g/dL (11.7-17.4) 07/06/18 14:39 ABG Carboxyhemoglobin 2.3 % (0.5-1.5) H 07/06/18 14:39 POC ABG HHb (Measured) 1.9 % (0.0-5.0) 07/06/18 14:39 ABG Methemoglobin 1.1 % (0.0-3.0) 07/06/18 14:39 Sean Test Na 07/06/18 14:39 VBG pH 7.35 (7.32-7.43) 07/06/18 00:46 VBG pCO2 55 mmHg (40-60) 07/06/18 00:46 VBG HCO3 26.3 mmol/L 07/06/18 00:46 VBG Total CO2 32.1 mmol/L (22-28) H 07/06/18 00:46 VBG O2 Sat (Calc) 55.8 % (40-65) 07/06/18 00:46 VBG Base Excess 3.4 mmol/L (0.0-2.0) H 07/06/18 00:46 VBG Potassium 4.2 mmol/L (3.6-5.2) 07/06/18 00:46 Hgb O2 Saturation 94.7 % (95.0-98.0) L 07/06/18 14:39 Sodium 136.0 mmol/l (132-148) 07/06/18 00:46 Chloride 100.0 mmol/L (98-107) 07/06/18 00:46 Glucose 84 mg/dl (75-110) 07/06/18 00:46 Lactate 1.9 mmol/L (0.7-2.1) 07/06/18 00:46 Liter Flow 21.0 07/06/18 14:39 Sodium 135 mmol/L (132-148) 07/10/18 07:44 Potassium 4.3 mmol/L (3.6-5.2) 07/10/18 07:44 Chloride 99 mmol/L (98-107) 07/10/18 07:44 Carbon Dioxide 31 mmol/L (22-30) H 07/10/18 07:44 Anion Gap 10 (10-20) 07/10/18 07:44 BUN 11 mg/dL (9-20) 07/10/18 07:44 Creatinine 0.9 mg/dL (0.8-1.5) 07/10/18 07:44 Est GFR ( Amer) > 60 07/10/18 07:44 Est GFR (Non-Af Amer) > 60 07/10/18 07:44 Random Glucose 88 mg/dL (75-110) 07/10/18 07:44 Calcium 9.3 mg/dl (8.6-10.4) 07/10/18 07:44 Phosphorus 3.8 mg/dL (2.5-4.5) 07/06/18 01:04 Magnesium 1.9 mg/dL (1.6-2.3) 07/06/18 01:04 Total Bilirubin 0.9 mg/dL (0.2-1.3) 07/10/18 07:44 AST 33 U/L (17-59) 07/10/18 07:44 ALT 17 U/L (21-72) L 07/10/18 07:44 Alkaline Phosphatase 58 U/L (38-126) 07/10/18 07:44 Total Protein 6.5 g/dL (6.3-8.3) 07/10/18 07:44 Albumin 3.6 g/dL (3.5-5.0) 07/10/18 07:44 Globulin 2.9 gm/dL (2.2-3.9) 07/10/18 07:44 Albumin/Globulin Ratio 1.2 (1.0-2.1) 07/10/18 07:44 Triglycerides 172 mg/dL (0-149) H D 07/07/18 05:52 Cholesterol 160 mg/dL (0-199) 07/07/18 05:52 LDL Cholesterol Direct 87 mg/dL (0-129) 07/07/18 05:52 HDL Cholesterol 49 mg/dL (30-70) 07/07/18 05:52 Free T4 1.14 ng/dL (0.78-2.19) 07/08/18 14:05 TSH 3rd Generation 1.56 mIU/L (0.46-4.68) 07/08/18 06:02 Venous Blood Potassium 4.2 mmol/L (3.6-5.2) 07/06/18 00:46 Urine Color Yellow (YELLOW) 07/06/18 02:15 Urine Clarity Clear (Clear) 07/06/18 02:15 Urine pH 5.0 (5.0-8.0) 07/06/18 02:15 Ur Specific [place] 1.010 (1.003-1.030) 07/06/18 02:15 Urine Protein Negative mg/dL (NEGATIVE) 07/06/18 02:15 Urine Glucose (UA) Normal mg/dL (Normal) 07/06/18 02:15 Urine Ketones Negative mg/dL (NEGATIVE) 07/06/18 02:15 Urine Blood Negative (NEGATIVE) 07/06/18 02:15 Urine Nitrate Negative (NEGATIVE) 07/06/18 02:15 Urine Bilirubin Negative (NEGATIVE) 07/06/18 02:15 Urine Urobilinogen Normal mg/dL (0.2-1.0) 07/06/18 02:15 Ur Leukocyte Esterase Negative [place]/uL (Negative) 07/06/18 02:15 Urine WBC (Auto) < 1 /hpf (0-5) 07/06/18 02:15 Urine RBC (Auto) 1 /hpf (0-3) 07/06/18 02:15 Urine Bacteria Rare (<OCC) 07/06/18 02:15 - Hospital Course Hospital Course: Code status: full code, does not have living will/AD, proxy Ronak restrepo CC: "I coughed up blood" HPI: Patient is a 77 y/o male with a PMhx of HTN and HLD presented to the ED with a 2 day history of cough and one episode of hemoptysis last night at 11 pm. Patient states that the cough was bright red blood colored and this is the first time he is having these symptoms. He also complains of pleuritic chest pain on the lateral lower left side of his chest that is exacerbated by coughing. Patient denies any fever, chills, palpitations, SOB, sore thorat, abdominal pain, nausea, vomiting, diarrhea, constipation, hematochezia, dysuria, hematuria, leg edema, numbness or tingling. He also denies any weight changes, recent travel, or any sick contact. PMD: Dr. Benito Germain MD. Pmhx: HTN, HLD PShx: denies. FamHx: Brother had CABG at age 50s after having an MD. Med: Aspirin 81 mg, Vit B, Vit D, Vit C complex Allergies: Novacaine (hypotension related palpitations) SocHx: Smoked 1ppd for about 60 years, quit 4 months ago, drinks alcohol socially on holidays, denies any drug use. Lives with his son and daughter in [place]. 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 Hospital Course: Upon admission patient was found to have left pulmonary embolism and he was started on heparin IV. Pulmonlogist, Dr. Lopez was consulted for suspicious left hilar mass. On 07/09 John Martell performed a bronchoscopy and completed a biopsy. Pathology results are pending. Patient was also evaluated for new onset irregular heart rhythm. Cardiology, Dr. Anne was consulted. After completion of evaluation Dr. Anne stated to continue medical management. Patient was seen and examined at bedside. Patient stated he has minor left sided upper back pain for which he stated in the afternoon the back pain has been chronic. Patient denies chest pain, shortness of breath, nausea, vomiting, diarrhea, constipation, fever, chills or headache. Imaging: * Chest Xray -interval basal atelectasis and or infiltrate, interval small left pleural effusion. * CT angio PE protocol - Multiple left lower lobe segmental branch pulm emboli. approx 5.5 x 4.9x 5.5 cm left inra hilar/left subcarinal/left hilar mass suspicious for malignancy encasing/infiltrate exerting mass effect on left, with encasement of the left main pulm artery. segmental atelectasis left lower lobe medial aspect. suspect regonal central and left mediastinal/left hilar lymphadenopathy. * LE doppler scan - no evidence of DVTs b/l * ECHO: EF 53%; Normal LV sys Function, trace MR/Mild TR Patient was discharged home. Discussed with patient to please start new medications: 1.) Eliquis 2.5mg one tablet daily 2.) Levaquin 750mg one tablet daily for 5 days Please follow up with Fitness Consultant, Dr. Lopez in 1 week. Please follow up with primary care physician in 1 week. This is a summary of the patient's hospital course. Please refer to the EMR for complete hospital course. Discharge Exam - Head Exam Head Exam: ATRAUMATIC, NORMAL INSPECTION - Eye Exam Eye Exam: EOMI, Normal appearance - ENT Exam ENT Exam: Mucous Membranes Moist - Respiratory Exam Respiratory Exam: Clear to PA & Lateral, NORMAL BREATHING PATTERN - Cardiovascular Exam Cardiovascular Exam: REGULAR RHYTHM, +S1, +S2 - GI/Abdominal Exam GI & Abdominal Exam: Normal Bowel Sounds, Soft. absent: Unremarkable - Extremities Exam Extremities exam: normal inspection - Neurological Exam Neurological exam: Alert, Oriented x3 - Psychiatric Exam Psychiatric exam: Normal Affect - Skin Skin Exam: Normal Color Discharge Plan - Discharge Medications Prescriptions: Apixaban [Eliquis] 2.5 mg PO DAILY #30 tablet levoFLOXacin [Levaquin] 750 mg PO DAILY #5 tab - Follow Up Plan Condition: GUARDED Disposition: HOME/ ROUTINE Additional Instructions: Please start new medications: 1.) Eliquis 2.5mg one tablet daily 2.) Levaquin 750mg one tablet daily for 5 days Please follow up with Fitness Consultant, Dr. Lopez in 1 week. Please follow up with primary care physician in 1 week. Referrals: Frandy Lopez MD [Staff Provider] - Martin Frost Jr., MD [Medical Doctor] -
[2018-07-10 17:49] VITALS: BP 144/69; PULSE 59; TEMP 98.2; O2SAT 95
--- NOTE | 2018-07-12 08:33 | OP ---
PROCEDURE DATE: 07/09/2018 PROCEDURE: Fiberoptic bronchoscopy and endobronchial ultrasound biopsy. INDICATION: Left hilar mass. DESCRIPTION OF PROCEDURE: After obtaining consent from the patient and explaining the patient risks and benefits, the patient was intubated by anesthesiologist and the bronchoscope was passed through the ET tube into the trachea. First, the bronchoscope was passed to the right side; the right middle, right upper, the right lower lobe all appeared normal. I let the bronchoscope pull back and passed to the left side; the left daisha was sharp, the left main appeared normal, but the left upper lobe orifice was very narrow and edematous and started bleeding without any biopsy. Brushing was done and was lavaged because of the bleeding. Later the endobronchial ultrasound was passed through the endotracheal tube into the trachea and into the left main and multiple biopsies were done. The patient tolerated the procedure well with no complication. Frandy Lopez MD
== END 2018-07-10 19:31 | disposition home or self-care (01) | DRG 176 ==
LOC: C.ER 23:23 → C.9E 07-06 05:03 → C.5S 07-06 08:00 → C.9I 07-06 11:12 → C.6T 07-08 14:31
PROVIDERS: ADMIT Internal Medicine; ATTEND Internal Medicine
PROC: 0BJ08ZZ Inspection of Tracheobronchial Tree, Via Natural or Artificial Opening Endoscopic (ICD-10-PCS; 2018-07-09)
PROC: 0BB78ZX Excision of Left Main Bronchus, Via Natural or Artificial Opening Endoscopic, Diagnostic (ICD-10-PCS; principal; 2018-07-09 07:45)
DX: I26.99 Other pulmonary embolism without acute cor pulmonale (principal); R04.2 Hemoptysis; J98.11 Atelectasis; J40 Bronchitis, not specified as acute or chronic; R91.8 Other nonspecific abnormal finding of lung field; R07.81 Pleurodynia; E78.5 Hyperlipidemia, unspecified; I10 Essential (primary) hypertension; I49.9 Cardiac arrhythmia, unspecified; F41.9 Anxiety disorder, unspecified; Z87.891 Personal history of nicotine dependence; Z82.49 Family history of ischemic heart disease and other diseases of the circulatory system